=== PATIENT | male | born 1940 | race Caucasian/White ===

== ENCOUNTER 2016-04-13 16:06 | Inpatient (IN) | payer MEDICARE, MEDICAID ==
[2016-04-13 16:40] VITALS: BP 125/59
[2016-04-13 17:00] LABS: % BASOPHILS 1.4 % (0.0-2.0); % LYMPHOCYTES 12.1 % (20.0-50.0); % MONOCYTES 6.7 % (2.0-10.0); % NEUTROPHILS 76.8 % (40.0-80.0); HEMATOCRIT 33.4 % (39.0-49.0); MEAN CELL VOLUME 88.9 fl (80-99); MEAN CORPUSCULAR HEMOGLOBIN 29.4 pg (27.0-31.0); MEAN CORPUSCULAR HGB CONC 33.1 pg (28.0-36.0); MEAN PLATELET VOLUME 8.5 fl; NEUTROPHILE ABSOLUTE 4.7 Th/cmm (1.8-8.0); RED BLOOD COUNT 3.75 Mil/cmm (3.80-5.80); RED CELL DISTRIBUTION WIDTH 17.3 % (11.5-20.0)
[2016-04-13 17:01] LABS: WHITE BLOOD COUNT 6.2 Th/cmm (4.8-10.8)
[2016-04-13 17:02] LABS: PLATELET COUNT 149 Th/cmm (150-400)
[2016-04-13 17:10] LABS: ALB/GLOB RATIO 0.9 (1.0-1.8); ALKALINE PHOSPHATASE 211 U/L (34-104); ANION GAP 8.7 (7.0-16.0); BILIRUBIN,TOTAL 1.6 mg/dL (0.3-1.0); BUN - UREA NITROGEN 13 mg/dL (7-25); BUN/CREATININE RATIO 5.2; CALCIUM SERUM 9.4 mg/dL (8.6-10.3); CARBON DIOXIDE 33.8 mEq/L (21.0-31.0); CHLORIDE 104 mEq/L (98-107); CHOLESTEROL 89 mg/dL (<200); CREATININE - SERUM 2.5 mg/dL (0.7-1.3); GLUCOSE 239 mg/dL (70-105); POTASSIUM SERUM 3.5 mEq/L (3.5-5.1); SGOT 27 U/L (13-39); SGPT/ALT 15 U/L (7-52); TRIGLYCERIDES 82 mg/dL (<150)
[2016-04-13 17:26] LABS: SODIUM SERUM 143 mEq/L (136-145)
[2016-04-13 17:58] LABS: INR 1.25 (0.5-1.4); PROTHROMBIN TIME (TEST) 12.6 SECONDS (9.5-11.5)
--- NOTE | 2016-04-13 18:56 | ED Physician Chart ---
Chief Complaint/HPI - Patient Information Date Seen:: 04/13/16 Time Seen:: 18:31 Chief Complaint:: WEAKNESS History of Present Illness:: THIS IS A 75 YO OBESE MALE WITH SEVERE BOUTS OF WEAKNESS AND PALPATIONS WITH COUGHING. HE IS A DIALYSIS PATIENT AND HAD DIALYSIS TODAY. HE HAS HEART DISEASE WITH A FIB Allergies:: Allergies Allergy/AdvReac Type Severity Reaction Status Date / Time No Known Allergies Allergy Verified 12/28/15 21:02 Vitals:: Vital Signs - 8 hr 04/13/16 04/13/16 16:40 16:43 Temp 98.1 F HR 117 RR 18 BP 125/59 125/59 O2 Sat % 90 Historian:: Patient, Family Member Review:: Nurse's Note Reviewed Review of Systems - Review of Systems General/Constitutional: No fever, No chills, No weakness, No diaphoresis, Edema , No loss of appetite Skin: No skin lesions, No rash, No bruising Head: No headache, No light-headedness Eyes: No loss of vision, No pain, No diplopia ENT: No earache, No nasal drainage, No sore throat, No tinnitus Neck: No neck pain, No swelling, No thyromegaly, No stiffness, No mass noted Cardio Vascular: No chest pain, Palpitations, PND, orthopnea, edema Pulmonary: SOB, Cough, No sputum, No wheezing GI: Nausea, No vomiting, No diarrhea, No pain, No melena, No hematochezia, No constipation, No hematemesis G/U: No dysuria, No frequency, No hematuria Musculoskeletal: No bone or joint pain, No back pain, No muscle pain Endocrine: No polyuria, No polydipsia Psychiatric: No prior psych history, No depression, No anxiety, No suicidal ideation Hematopoietic: No bruising, No lymphadenopathy Allergic/Immuno: No urticaria, No angioedema Neurological: No syncope, No focal symptoms, No weakness, No paresthesia, No headache, No seizure, No dizziness, No confusion, No vertigo Past Medical History - Past Medical History Obtainable: Yes Past Medical History: HTN, DM, CAD, CHF, ESRD Family Medical History - Family Member Mother History Unknown: Yes Ethnicity: Hx Family Diabetes: Yes Physical Exam - Physical Examination General/Constitutional: Awake, Well-developed, well-nourished, Alert, No distress, GCS 15, Non-toxic appearing, Ambulatory Head: Atraumatic Eyes: Lids, conjuctiva normal, PERRL, EOMI Skin: Nl inspection, No rash, No skin lesions, No ecchymosis, Well hydrated, No lymphadenopathy ENMT: External ears, nose nl, Nasal exam nl, Lips, teeth, gums nl Neck: Nontender, Full ROM w/o pain, No JVD, No nuchal rigidity, No bruit, No mass, No stridor Respiratory: Nl effort/Exclusion Other Respiratory comments:: BILATERAL RALES HEARD IN BOTH LOWER LOBES. Cardio Vascular: No murmur, gallop, rubs, NL S1 S2 Other Cardio Vascular comments:: MULTIPLE PVCS AND ARE FREQUENT GI: No tenderness/rebounding/guarding, No organomegaly, No hernia, Normal BS's, Nondistended, No mass/bruits, No McBurney tenderness : No CVA tenderness Extremities: No tenderness or effusion, Full ROM, normal strength in all extremities, Normal digits & nails Other Extremities comments:: BILATERAL EDEMA OF THE LOWER LEGS Neuro/Psych: Alert/oriented, DTR's symmetric, Normal sensory exam, Normal motor strength, Judgement/insight normal, Mood normal, Normal gait, No focal deficits Misc: normal gait, Normal back, No paraspinal tenderness Labs/Radiology/EKG Results - Lab Results Results: Laboratory Tests 04/13/16 04/13/16 04/13/16 16:49 16:49 16:49 WBC 6.2 D RBC 3.75 L Hgb 11.0 L Hct 33.4 L MCV 88.9 MCH 29.4 MCHC Differential 33.1 RDW 17.3 Plt Count 149 L D MPV 8.5 Neutrophils % 76.8 Lymphocytes % 12.1 L Monocytes % 6.7 Eosinophils % 3.0 Basophils % 1.4 PT 12.6 H INR 1.25 PTT (Actin FS) 25.9 L Sodium Potassium Chloride Carbon Dioxide Anion Gap BUN Creatinine Est GFR ( Amer) Est GFR (Non-Af Amer) BUN/Creatinine Ratio Glucose Hemoglobin A1c % Calcium Total Bilirubin AST ALT Alkaline Phosphatase Troponin I Total Protein Albumin Globulin Albumin/Globulin Ratio Triglycerides 82 Cholesterol 89 LDL Cholesterol Direct 26 L HDL Cholesterol 41 TSH 04/13/16 04/13/16 04/13/16 16:49 16:49 16:49 WBC RBC Hgb Hct MCV MCH MCHC Differential RDW Plt Count MPV Neutrophils % Lymphocytes % Monocytes % Eosinophils % Basophils % PT INR PTT (Actin FS) Sodium 143 D Potassium 3.5 Chloride 104 Carbon Dioxide 33.8 H Anion Gap 8.7 BUN 13 Creatinine 2.5 H Est GFR ( Amer) TNP Est GFR (Non-Af Amer) TNP BUN/Creatinine Ratio 5.2 Glucose 239 H Hemoglobin A1c % Calcium 9.4 Total Bilirubin 1.6 H AST 27 ALT 15 Alkaline Phosphatase 211 H Troponin I 0.04 Total Protein 7.9 Albumin 3.7 L Globulin 4.2 Albumin/Globulin Ratio 0.9 L Triglycerides Cholesterol LDL Cholesterol Direct HDL Cholesterol TSH 3.26 04/13/16 16:49 WBC RBC Hgb Hct MCV MCH MCHC Differential RDW Plt Count MPV Neutrophils % Lymphocytes % Monocytes % Eosinophils % Basophils % PT INR PTT (Actin FS) Sodium Potassium Chloride Carbon Dioxide Anion Gap BUN Creatinine Est GFR ( Amer) Est GFR (Non-Af Amer) BUN/Creatinine Ratio Glucose Hemoglobin A1c % 8.8 H Calcium Total Bilirubin AST ALT Alkaline Phosphatase Troponin I Total Protein Albumin Globulin Albumin/Globulin Ratio Triglycerides Cholesterol LDL Cholesterol Direct HDL Cholesterol TSH - Radiology Results Results: CHEST X-RAY = 4+ CARDIOMEGALY - EKG Interpretations EKG Time:: 18:14 Rhythm: ATRIAL FIBRILLATION Page: LEFT Rate: 119 ED Septic Shock - . Is Septic Shock (SBP<90, OR Lactate>4 mmol\L) present?: No - <6hrs of presentation: Vital Signs: Vital Signs - 8 hr 04/13/16 04/13/16 16:40 16:43 Temp 98.1 F HR 117 RR 18 BP 125/59 125/59 O2 Sat % 90 Reassessment (Disposition) - Reassessment Reassessment Condition:: Improved - Diagnosis Diagnosis:: ACUTE CHF ESRD ATRIAL FIB MULTIFOCAL PVCS. - Patient Disposition Discharge/Transfer:: Acute Care w/in this hosp Condition at Disposition:: Unchanged ED Discharge Plan - Patient Disposition Admit/Discharge/Transfer: Acute Care w/in this hosp Condition at Disposition: Guarded
--- NOTE | 2016-04-13 21:55 | Admit Criteria Form ---
Admit Criteria Forms - Admit Criteria Diagnosis: RENAL FAILURE, CHRONIC Clinical Indications for Admission to Inpatient Care (Place 'X' for any and all applicable criteria): Admission is indicated for ANY ONE of the following (1)(2)(3)(4)(5): [ ]I. Inpatient admission required rather than observation care (Use Renal Failure, Chronic: Observation Care Criteria as appropriate) because of ANY ONE of the following: [ ]a) Volume overload or uremic symptoms (eg, clinically significant pulmonary edema, hypertension, pericarditis, acidosis) too severe for, or not responsive (eg, for over 24 hours) to emergency department or observation care dialysis or treatment regimen (11) [ ]b) Hemodynamic instability that is severe or persistent [ ]c) Respiratory distress that is severe or persistent (11) [ ]d) Clinically significant electrolyte abnormality that requires inpatient care (eg,hyperkalemia with severe ECG findings)[B] [ ]e) Supplement O2 or respiratory therapy for over 24hrs that is performable only in acute inpatient setting [ ]f) Continuous IV infusion of anticoagulation, platelet inhibitor, vasoactive, or Antiarrhythmic medication (15), [ ]g) Pulmonary artery catheter monitoring [ ]h) Temporary pacemaker placement [ ]i) Emergent pericardiocentesis [ ]j) Other condition, treatment or monitoring requiring inpatient admission [ ]II. Unexplained syncope [A] [ ]III. Recurrent seizures [ ]IV. Severe infections not treatable in outpatient setting (eg, peritonitis)(9 ) [X]V. Cardiac arrhythmias of immediate concern [ ]. Encephalopathy [ ]VII.Bleeding abnormalities (eg, platelet dysfunction) with active (eg, gastrointestinal) bleeding Extended stay beyond goal length of stay may be needed for (3)(4)(35)(36): [ ]a) Continuing uremic complications [ ]b) Comorbidities or complications The original [employer] content created by [employer] has been revised. The portions of the content which have been revised are identified through the use of italic text or in bold, and [facility] [employer] has neither reviewed nor approved the modified material. All other unmodified content is copyright [employer]. Please see references footnoted in the original [email or web address] edition 2016 Admit Criteria Met?: Yes
[2016-04-13] MEDS: INSULIN ASPART SLIDING SCALE 100 UNITS/ML UNIT SUBQ SCH (23:00)
[2016-04-14] MEDS: INSULIN ASPART SLIDING SCALE 100 UNITS/ML UNIT SUBQ SCH ×4 (06:50→21:05)
[2016-04-14 07:14] LABS: % BASOPHILS 0.2 % (0.0-2.0); % EOSINOPHILS 2.7 % (0.0-5.0); % LYMPHOCYTES 9.2 % (20.0-50.0); % MONOCYTES 7.9 % (2.0-10.0); HEMATOCRIT 30.1 % (39.0-49.0); MEAN CELL VOLUME 88.9 fl (80-99); MEAN CORPUSCULAR HEMOGLOBIN 29.6 pg (27.0-31.0); MEAN CORPUSCULAR HGB CONC 33.3 pg (28.0-36.0); MEAN PLATELET VOLUME 8.7 fl; NEUTROPHILE ABSOLUTE 5.6 Th/cmm (1.8-8.0); PLATELET COUNT 129 Th/cmm (150-400); RED BLOOD COUNT 3.39 Mil/cmm (3.80-5.80); RED CELL DISTRIBUTION WIDTH 17.9 % (11.5-20.0)
[2016-04-14 07:51] LABS: ALB/GLOB RATIO 0.9 (1.0-1.8); ALKALINE PHOSPHATASE 188 U/L (34-104); ANION GAP 10.5 (7.0-16.0); BILIRUBIN,TOTAL 1.4 mg/dL (0.3-1.0); BUN - UREA NITROGEN 18 mg/dL (7-25); BUN/CREATININE RATIO 5.6; CALCIUM SERUM 8.9 mg/dL (8.6-10.3); CHLORIDE 103 mEq/L (98-107); CREATININE - SERUM 3.2 mg/dL (0.7-1.3); GLUCOSE 150 mg/dL (70-105); POTASSIUM SERUM 3.5 mEq/L (3.5-5.1); SGOT 26 U/L (13-39); SGPT/ALT 15 U/L (7-52); SODIUM SERUM 145 mEq/L (136-145)
--- NOTE | 2016-04-14 08:43 | General Progress Note ---
Subjective - Review of Systems Service Date: 04/14/16 Subjective: I could not sleep. Objective - Results Result Diagrams: 04/14/16 06:06 04/14/16 06:06 Recent Labs: Laboratory Last Values WBC 7.0 Th/cmm (4.8-10.8) 04/14/16 06:06 RBC 3.39 Mil/cmm (3.80-5.80) L 04/14/16 06:06 Hgb 10.0 gm/dL (12.6-17.4) L 04/14/16 06:06 Hct 30.1 % (39.0-49.0) L 04/14/16 06:06 MCV 88.9 fl (80-99) 04/14/16 06:06 MCH 29.6 pg (27.0-31.0) 04/14/16 06:06 MCHC Differential 33.3 pg (28.0-36.0) 04/14/16 06:06 RDW 17.9 % (11.5-20.0) 04/14/16 06:06 Plt Count 129 Th/cmm (150-400) L 04/14/16 06:06 MPV 8.7 fl 04/14/16 06:06 Neutrophils % 80.0 % (40.0-80.0) 04/14/16 06:06 Lymphocytes % 9.2 % (20.0-50.0) L 04/14/16 06:06 Monocytes % 7.9 % (2.0-10.0) 04/14/16 06:06 Eosinophils % 2.7 % (0.0-5.0) 04/14/16 06:06 Basophils % 0.2 % (0.0-2.0) 04/14/16 06:06 PT 12.6 SECONDS (9.5-11.5) H 04/13/16 16:49 INR 1.25 (0.5-1.4) 04/13/16 16:49 PTT (Actin FS) 25.9 SECONDS (26.0-38.0) L 04/13/16 16:49 Sodium 145 mEq/L (136-145) 04/14/16 06:06 Potassium 3.5 mEq/L (3.5-5.1) 04/14/16 06:06 Chloride 103 mEq/L (98-107) 04/14/16 06:06 Carbon Dioxide 35.0 mEq/L (21.0-31.0) H 04/14/16 06:06 Anion Gap 10.5 (7.0-16.0) 04/14/16 06:06 BUN 18 mg/dL (7-25) 04/14/16 06:06 Creatinine 3.2 mg/dL (0.7-1.3) H 04/14/16 06:06 Est GFR ( Amer) TNP 04/14/16 06:06 Est GFR (Non-Af Amer) TNP 04/14/16 06:06 BUN/Creatinine Ratio 5.6 04/14/16 06:06 Glucose 150 mg/dL (70-105) H 04/14/16 06:06 POC Glucose 172 MG/DL (70 - 105) H 04/14/16 06:46 Hemoglobin A1c % 8.8 % (4.0-6.0) H 04/13/16 16:49 Calcium 8.9 mg/dL (8.6-10.3) 04/14/16 06:06 Total Bilirubin 1.4 mg/dL (0.3-1.0) H 04/14/16 06:06 AST 26 U/L (13-39) 04/14/16 06:06 ALT 15 U/L (7-52) 04/14/16 06:06 Alkaline Phosphatase 188 U/L (34-104) H 04/14/16 06:06 Troponin I 0.04 ng/mL (0.01-0.05) 04/13/16 16:49 Total Protein 7.1 gm/dL (6.0-8.3) 04/14/16 06:06 Albumin 3.4 gm/dL (4.2-5.5) L 04/14/16 06:06 Globulin 3.7 gm/dL 04/14/16 06:06 Albumin/Globulin Ratio 0.9 (1.0-1.8) L 04/14/16 06:06 Triglycerides 82 mg/dL (<150) 04/13/16 16:49 Cholesterol 89 mg/dL (<200) 04/13/16 16:49 LDL Cholesterol Direct 26 mg/dL (75-193) L 04/13/16 16:49 HDL Cholesterol 41 mg/dL (23-92) 04/13/16 16:49 TSH 3.26 uIU/ml (0.34-5.60) 04/13/16 16:49 RPR NONREACTIVE (NONREACTIVE) 04/13/16 16:49 - Physical Exam Vitals and I&O: Vital Signs Temp 98 F 04/14/16 04:00 Pulse 100 04/14/16 04:00 Resp 19 04/14/16 04:00 BP 152/80 04/14/16 08:13 Pulse Ox 96 04/14/16 04:00 Active Medications: Current Medications Acetaminophen (Tylenol) 650 mg PO BID [facility] Stop: 06/13/16 08:59 Last Admin: 04/14/16 08:13 Dose: 650 mg Docusate Sodium (Colace) 100 mg PO BID [facility] Stop: 06/13/16 08:59 Last Admin: 04/14/16 08:12 Dose: 100 mg Folic Acid (Folate) 1 mg PO DAILY [facility] Stop: 06/13/16 08:59 Last Admin: 04/14/16 08:13 Dose: 1 mg Furosemide (Lasix) 40 mg PO DAILY [facility] Stop: 06/13/16 08:59 Last Admin: 04/14/16 08:13 Dose: 40 mg Insulin Aspart (Novolog Insulin Sliding Scale) 0 units SUBQ ACHS [facility] PRN Reason: Protocol Stop: 06/12/16 21:59 Last Admin: 04/14/16 06:50 Dose: 3 units Nortriptyline HCl (Pamelor) 10 mg PO HS [facility] Stop: 06/13/16 20:59 Pneumococcal Polyvalent Vaccine (Pneumovax) 0.5 ml IM .ONCE ONE Stop: 04/14/16 13:01 Simvastatin (Zocor) 40 mg PO [facility] Stop: 06/13/16 20:59 Tamsulosin HCl (Flomax) 0.4 mg PO DAILY [facility] Stop: 06/13/16 08:59 Last Admin: 04/14/16 08:13 Dose: 0.4 mg General: Alert, Oriented x3, Cooperative HEENT: Atraumatic Neck: Supple Cardiovascular: Regular rate Lungs: Other (Bilateral basal rales in both hemithorax) Abdomen: Bowel sounds Extremities: Other (Pitting edema 1+, Pulses weak.) Neurological: Other (unstable gait) Skin: Other (lower extremities is dark and dry.) Psych/Mental Status: Mental status NL - Procedures Procedures: Procedures Procedure Code Date PERFORMANCE OF URINARY FILTRATION, MULTIPLE [id number] 12/29/15 Assessment/Plan - Assessment Assessment: Patient is awake, calm. Dx: CHF, SVT, ESRD, PVD, Obesity - Plan Plan: Patient in home meds, lasix, awaitting eval from cardio and nephro.
[2016-04-14] MEDS ORDERED: Atorvastatin Calcium 10 MG TAB PO SCH (09:00)
--- NOTE | 2016-04-14 09:41 | Diagnostic Imaging Report ---
Portable chest x-ray HISTORY: Shortness of breath There is marked cardiomegaly. There is evidence of a small right pleural effusion. Pulmonary vascular redistribution is noted. IMPRESSION: 1. Marked cardiomegaly with a small pleural effusion findings suggesting a degree of congestive heart failure. Clinical correlation is needed.
--- NOTE | 2016-04-14 11:08 | History & Physical ---
CHIEF COMPLAINT: Weakness, palpitations, and coughing. HISTORY OF PRESENT ILLNESS: This is the case of a 75-year-old male who I follow in my office. The patient called that he fell down in the morning and he has shortness of breath, reason why patient was sent to Emergency Room for evaluation and treatment. On evaluation in ER, it was found the patient had SVTs with some shortness of breath, reason why patient was hospitalized for treatment. PAST MEDICAL HISTORY: The patient has past medical history of hypertension, diabetes mellitus, cardiac artery disease, end-stage renal disease, on hemodialysis 4 times a week and obesity and peripheral vascular disease. FAMILY HISTORY: Unremarkable. ALLERGIES: No known allergies. SOCIAL HISTORY: The patient lives at home with sons. The patient denies use of alcohol or drugs. REVIEW OF SYSTEMS: LUNGS: The patient referred some shortness of breath. HEART: The patient referred palpitation. ABDOMEN: Unremarkable. EXTREMITIES: Muscle weakness in lower extremities. NEUROLOGICAL: The patient referred that he fell down in the morning. PHYSICAL EXAMINATION: GENERAL: Does reveal a fairly nourished and developed and obese male, awake, alert with some distress secondary to shortness of breath. HEENT: Head is normocephalic and atraumatic. Eyes: Pupils reactive to light. Fundus not examined at this time. Nose: No evidence of nasal obstruction. Ears: No evidence of any discharge. Mouth: Fairly ____. LUNGS: Bilateral rales in both lower lobes. HEART: Regular rhythm. ABDOMEN: Soft, nontender, bowel sound is present. EXTREMITIES: Full movement of all extremities with weakness in lower extremities. SKIN: Skin of lower extremities is dark and dry. Lower extremity pulses weak. NEUROLOGICAL: The patient is awake, alert and oriented. Nerves 2-12 grossly intact. DIAGNOSES: 1. Acute congestive heart failure. 2. Atrial fibrillation. 3. End-stage renal disease. 4. Multifocal premature ventricular contractions. PLAN: 1. The patient will be admitted in the telemetry unit. 2. Saline lock. 3. Consult with Dr. Immanuel Irving, Cardiology. 4. Consult with Dr. Amin, Nephrology. 5. Continue with home medications. 6. Renal diet. JOB# [id number]
[2016-04-14] MEDS ORDERED: Pneumococcal Vaccine 0.5 mL Vial IM ONE (13:00)
--- NOTE | 2016-04-15 00:52 | Admit Criteria Form ---
Admit Criteria Forms - Admit Criteria Diagnosis: ATRIAL FIBRILLATION Clinical Indications for Admission to Inpatient Care (Place 'X' for any and all applicable criteria): Admission indicated for ANY ONE of the following(1)(2)(3)(4)(5) : [ ]I. Myocardial ischemia [ ]II. Dyspnea or hypoxemia [ ]III. Hemodynamic instability [X]IV. Heart failure (e.g., pulmonary edema) (7) [ ]V. New-onset (less than 48 hours) atrial fibrillation with high risk for causing complications secondary to comorbidities (eg, symptomatic heart failure) [ ]. Altered mental status [ ]VII. Syncope [ ]VIII. Patient has implantable cardioverter defibrillator that has fired more than once within past 24hr or needs immediate adjustment of settings that cannot be done other than in inpatient setting. (8) [ ]IX. Suspected accessory pathway (e.g., Vruws-Hnmbpfgki-Najzl syndrome) on ECG [ ]X. Recent systemic thromboembolism (eg, stroke) [ ]XI. Medication toxicity (e.g., digitalis) causing arrhythmia(9) [ ]XII. Underlying medical condition that necessitates inpatient care (e.g., thyrotoxicosis, pneumonia) (10) [ ]XIII. Continuous ECG monitoring is required for condition causing arrhythmia (e.g., severe hyperkalemia, hypokalemia, acid-base disturbance).(11)(12)(13) [ ]XIV. Initiation of antiarrhythmic drug therapy is needed in patient at high risk of adverse effects as indicated by ANY ONE of the following: [ ]a) Significant structural heart disease (e.g., reduced ejection fraction, congenital heart disease, valvular heart disease) [ ]b) Prolonged QT interval [ ]c) Underlying sinus node or atrioventricular conduction disturbances [ ]d) Need for treatment with antiarrhythmic drugs that have significant proarrhythmic potential (e.g., dofetilide, sotalol, procainamide) [ ]e) Patient whose sinus rhythm has never been observed on ECG [ ]XV. Intolerable symptoms despite optimal outpatient treatment [ ]XVI. Elective or urgent cardioversion that cannot be performed on outpatient basis or during observation care. [A] (Use also Atrial Fibrillation: Observation Care ) as appropriate.(14) [ ]XVII.Contraindications and/or Inappropriate clinical situations for Observational Care in patients with Atrial Fibrillation, when ANY ONE of the following is required: [ ]a) Patient with High risk of cardiac embolism (e.g, patients with previous cardiac embolism, LVEF < 40%, age >75 and patients with prosthetic valve) 18 [ ]b) Patient with Moderate risk including DM patient, CAD and patient aged 65-75 18 [ ]c) Patient with any change in cardiac biomarker especially troponin should be managed as high risk in an inpatient setting 19 [ ]d) Physician judgement irrespective of ECG and other diagnostic findings 20 [ ]XVIII.General contraindications and/or Inappropriate clinical situations for Observational Care in patients with Atrial Fibrillation, when ANY ONE of the following is required: [ ]a) Prediction of prolongation of LOS based on ANY ONE of the following may be considered as a contraindication for observational care 2, 3, 4, 5, 6, 7, 8, 9, 10, 11 [ ]i) Age > 65 yrs. [ ]ii) Patient arriving by ambulance [ ]iii) Patient with high acuity [ ]iv) Patient requiring vital sign monitoring [ ]v) Patient on IV medication [ ]b) Systolic blood pressures 180mmHg 3,12 [ ]c) Patient with altered mental status including delirium and other alteration of consciousness3 [ ]d) Patient whose discharge disposition will be to a correction home or rehabilitation home should not be managed in Emergency Department Observation Unit. CMS rule requires 3 days hospital stay before such placement.3,13 [ ]e) Patient with failure to thrive due to broad array of etiologies 3,16,17 [ ]f) Inability to ambulate 3,14 Extended stay beyond goal length of stay may be needed for (1)(25)(26): [ ]a) Unstable comorbidities [ ]b) Persistently uncontrolled atrial fibrillation or other arrhythmias [ ]c) Acute thromboembolic event (e.g., stroke, limb ischemia) [ ]d) Need for inpatient attainment of full anticoagulation The original [employer] content created by [employer] has been revised. The portions of the content which have been revised are identified through the use of italic text or in bold, and [facility] has neither reviewed nor approved the modified material. All other unmodified content is copyright [facility]. Please see references footnoted in the original [email or web address] edition 2016 Admit Criteria Met?: Yes
[2016-04-15] MEDS: INSULIN ASPART SLIDING SCALE 100 UNITS/ML UNIT SUBQ SCH ×4 (06:40→23:55)
[2016-04-15 07:27] LABS: % BASOPHILS 0.9 % (0.0-2.0); % EOSINOPHILS 5.1 % (0.0-5.0); % LYMPHOCYTES 12.4 % (20.0-50.0); % MONOCYTES 7.8 % (2.0-10.0); % NEUTROPHILS 73.8 % (40.0-80.0); HEMATOCRIT 31.4 % (39.0-49.0); HEMOGLOBIN 10.4 gm/dL (12.6-17.4); MEAN CELL VOLUME 89.1 fl (80-99); MEAN CORPUSCULAR HEMOGLOBIN 29.5 pg (27.0-31.0); MEAN CORPUSCULAR HGB CONC 33.1 pg (28.0-36.0); MEAN PLATELET VOLUME 8.6 fl; NEUTROPHILE ABSOLUTE 5.6 Th/cmm (1.8-8.0); PLATELET COUNT 135 Th/cmm (150-400); RED BLOOD COUNT 3.52 Mil/cmm (3.80-5.80); WHITE BLOOD COUNT 7.6 Th/cmm (4.8-10.8)
[2016-04-15 07:54] LABS: ALB/GLOB RATIO 0.9 (1.0-1.8); ALKALINE PHOSPHATASE 194 U/L (34-104); ANION GAP 11.3 (7.0-16.0); BILIRUBIN,TOTAL 1.5 mg/dL (0.3-1.0); BUN - UREA NITROGEN 29 mg/dL (7-25); BUN/CREATININE RATIO 6.6; CALCIUM SERUM 8.9 mg/dL (8.6-10.3); CARBON DIOXIDE 31.2 mEq/L (21.0-31.0); CHLORIDE 99 mEq/L (98-107); GLUCOSE 147 mg/dL (70-105); POTASSIUM SERUM 4.5 mEq/L (3.5-5.1); SGOT 24 U/L (13-39); SGPT/ALT 16 U/L (7-52); SODIUM SERUM 137 mEq/L (136-145)
[2016-04-15 07:58] LABS: CREATININE - SERUM 4.4 mg/dL (0.7-1.3)
--- NOTE | 2016-04-15 09:32 | General Progress Note ---
Subjective - Review of Systems Service Date: 04/15/16 Subjective: I have cough Objective - Results Result Diagrams: 04/15/16 07:06 04/15/16 07:06 Recent Labs: Laboratory Last Values WBC 7.6 Th/cmm (4.8-10.8) 04/15/16 07:06 RBC 3.52 Mil/cmm (3.80-5.80) L 04/15/16 07:06 Hgb 10.4 gm/dL (12.6-17.4) L 04/15/16 07:06 Hct 31.4 % (39.0-49.0) L 04/15/16 07:06 MCV 89.1 fl (80-99) 04/15/16 07:06 MCH 29.5 pg (27.0-31.0) 04/15/16 07:06 MCHC Differential 33.1 pg (28.0-36.0) 04/15/16 07:06 RDW 17.0 % (11.5-20.0) 04/15/16 07:06 Plt Count 135 Th/cmm (150-400) L 04/15/16 07:06 MPV 8.6 fl 04/15/16 07:06 Neutrophils % 73.8 % (40.0-80.0) 04/15/16 07:06 Lymphocytes % 12.4 % (20.0-50.0) L 04/15/16 07:06 Monocytes % 7.8 % (2.0-10.0) 04/15/16 07:06 Eosinophils % 5.1 % (0.0-5.0) H 04/15/16 07:06 Basophils % 0.9 % (0.0-2.0) 04/15/16 07:06 PT 12.6 SECONDS (9.5-11.5) H 04/13/16 16:49 INR 1.25 (0.5-1.4) 04/13/16 16:49 PTT (Actin FS) 25.9 SECONDS (26.0-38.0) L 04/13/16 16:49 Sodium 137 mEq/L (136-145) 04/15/16 07:06 Potassium 4.5 mEq/L (3.5-5.1) 04/15/16 07:06 Chloride 99 mEq/L (98-107) 04/15/16 07:06 Carbon Dioxide 31.2 mEq/L (21.0-31.0) H 04/15/16 07:06 Anion Gap 11.3 (7.0-16.0) 04/15/16 07:06 BUN 29 mg/dL (7-25) H 04/15/16 07:06 Creatinine 4.4 mg/dL (0.7-1.3) H* 04/15/16 07:06 Est GFR ( Amer) TNP 04/15/16 07:06 Est GFR (Non-Af Amer) TNP 04/15/16 07:06 BUN/Creatinine Ratio 6.6 04/15/16 07:06 Glucose 147 mg/dL (70-105) H 04/15/16 07:06 POC Glucose 130 MG/DL (70 - 105) H 04/15/16 06:38 Hemoglobin A1c % 8.8 % (4.0-6.0) H 04/13/16 16:49 Calcium 8.9 mg/dL (8.6-10.3) 04/15/16 07:06 Total Bilirubin 1.5 mg/dL (0.3-1.0) H 04/15/16 07:06 AST 24 U/L (13-39) 04/15/16 07:06 ALT 16 U/L (7-52) 04/15/16 07:06 Alkaline Phosphatase 194 U/L (34-104) H 04/15/16 07:06 Troponin I 0.04 ng/mL (0.01-0.05) 04/13/16 16:49 Total Protein 7.3 gm/dL (6.0-8.3) 04/15/16 07:06 Albumin 3.5 gm/dL (4.2-5.5) L 04/15/16 07:06 Globulin 3.8 gm/dL 04/15/16 07:06 Albumin/Globulin Ratio 0.9 (1.0-1.8) L 04/15/16 07:06 Triglycerides 82 mg/dL (<150) 04/13/16 16:49 Cholesterol 89 mg/dL (<200) 04/13/16 16:49 LDL Cholesterol Direct 26 mg/dL (75-193) L 04/13/16 16:49 HDL Cholesterol 41 mg/dL (23-92) 04/13/16 16:49 TSH 3.26 uIU/ml (0.34-5.60) 04/13/16 16:49 RPR NONREACTIVE (NONREACTIVE) 04/13/16 16:49 - Physical Exam Vitals and I&O: Vital Signs Temp 97.9 F 04/15/16 04:00 Pulse 94 04/15/16 04:00 Resp 20 04/15/16 04:00 BP 155/75 04/15/16 04:00 Pulse Ox 94 04/15/16 04:00 Intake & Output 04/14/16 04/15/16 04/15/16 18:59 06:59 18:59 Intake Total 450 500 Balance 450 500 Intake: Oral 450 500 Other: # Voids 2 Active Medications: Current Medications Acetaminophen (Tylenol) 650 mg PO BID [facility] Stop: 06/13/16 08:59 Last Admin: 04/15/16 08:22 Dose: 650 mg Docusate Sodium (Colace) 100 mg PO BID [facility] Stop: 06/13/16 08:59 Last Admin: 04/15/16 08:22 Dose: 100 mg Folic Acid (Folate) 1 mg PO DAILY [facility] Stop: 06/13/16 08:59 Last Admin: 04/15/16 08:22 Dose: 1 mg Furosemide (Lasix) 40 mg PO DAILY [facility] Stop: 06/13/16 08:59 Last Admin: 04/14/16 08:13 Dose: 40 mg Insulin Aspart (Novolog Insulin Sliding Scale) 0 units SUBQ ACHS [facility] PRN Reason: Protocol Stop: 06/12/16 21:59 Last Admin: 04/15/16 06:40 Dose: Not Given Nortriptyline HCl (Pamelor) 10 mg PO HS [facility] Stop: 06/13/16 20:59 Simvastatin (Zocor) 40 mg PO HS [facility] Stop: 06/13/16 20:59 Last Admin: 04/14/16 20:57 Dose: 40 mg Tamsulosin HCl (Flomax) 0.4 mg PO DAILY [facility] Stop: 06/13/16 08:59 Last Admin: 04/15/16 08:22 Dose: 0.4 mg General: Alert, Oriented x3, Cooperative, No acute distress HEENT: Atraumatic Neck: Supple Cardiovascular: Regular rate Lungs: Clear to auscultation, no Other Abdomen: Bowel sounds, Soft Extremities: Other (Pitting edema 1+) Neurological: Other (Unstable gait) Skin: Other (Lower extremities sking is dark.) Psych/Mental Status: Mental status NL - Procedures Procedures: Procedures Procedure Code Date PERFORMANCE OF URINARY FILTRATION, MULTIPLE [id number] 12/29/15 Assessment/Plan - Assessment Assessment: Patient is awake, calm. Dx: CHF, SVT, ESRD, PVD, Obesity - Plan Plan: Patient in home meds, lasix, awaitting eval from cardio and nephro.
[2016-04-15] MEDS ORDERED: Heparin Sodium 1,000 Units/mL Vial IVP ONE (22:00)
[2016-04-15] MEDS ORDERED: Heparin 25,000 Units In D5W 25,000 UNITS/250 ML BAG IV PRN (22:27)
--- NOTE | 2016-04-15 23:24 | Consultation ---
HISTORY OF PRESENT ILLNESS: This 75-year-old male was seen and examined the courtesy of Dr. Celaya. The patient was admitted here with some shortness of breath, swelling of the legs, not feeling good. Apparently, patient does have a history of coronary artery disease, hypertension, atrial fibrillation, diabetes type 2, end-stage renal disease, on hemodialysis, anemia of chronic disease. He was also found to have ulcers on the right foot discoloration of both lower extremities and anemia of chronic disease. On questioning him, he does not give any history of chest pain at the moment some shortness of breath, no dizziness. No syncope, no seizures. No hemoptysis. No history of abdominal pain, no nausea, vomiting, no history of hemetemesis, no history of melena, no history of bleeding per rectum. No history of change in bowel habits. ____ history of dementia. In the ER, the patient was a very poor historian. PAST MEDICAL HISTORY: The patient is not giving up any proper past history, family history or social history. PHYSICAL EXAMINATION: VITAL SIGNS: Heart rate 111, atrial fibrillation. Blood pressure was 130/81, temperature 98.2, respirations 20, O2 saturation 92%. The patient is getting hemodialysis right now. SKIN: Unremarkable. NECK: There was no increased jugular venous distention, no thyromegaly, no lymphadenopathy. Carotids equal on both sides. CHEST: Bilaterally symmetrical and moves well with respirations. Respiratory movement equal both sides. Trachea is central. There is note to percussion. Breath sound bilateral rales. CARDIOVASCULAR: PMI not well localized and no positional thrills. No parasternal heave. S1 is varying intensity. S2 is physiologic. There is no definite S3, no rub. ABDOMEN: Soft, no tenderness, no rigidity, no guarding and no organomegaly. Bowel sounds normal. EXTREMITIES: There is bilateral edema. ____ both lower extremities. There is ulcer on the right foot on the fourth toe as well as on the big toe plantar aspect. LABORATORY DATA: EKG showed atrial fibrillation, slightly fast ventricular response, heart rate was 119 at that time, generalized low voltage. Rare PVCs. WBC count was 7.6, hemoglobin 10.4, hematocrit 31.4, platelet count was 135. Sodium 137, potassium 4.5, chloride 99, CO2 is 31.2, BUN 79, creatinine 4.4, glucose 147, alkaline phosphatase 194, cholesterol 89, triglycerides 82, HDL 41, LDL 26. TSH 3.26. Troponin level was 0.04. Hemoglobin A1c 8.8. Protime INR was 1.25, PTT 25.9. IMPRESSION: History of coronary artery disease, atrial fibrillation, hypertension, congestive heart failure, chest x-ray showing pulmonary vascular congestion, cardiomegaly, right pleural effusion, diabetes type 2, diabetic involvement of the kidneys, end-stage renal disease on hemodialysis, morbid obesity, anemia of chronic disease, ulcers on the right foot, diabetic foot benign prostatic hypertrophy. DISCUSSED CESSATION: This 75-year-old man who was admitted here who is a very poor historian, seems to have multiple problems. Since he has AFib, I do not know if it is acute or chronic, probably it is chronic. He should be considering his different problems. He should be on anticoagulation unless until contraindicated. We will take the liberty of starting him on heparin IV drip and later on Coumadin can be added. We will also add Pepcid 20 mg p.o. daily. We will add Coreg 3.125 p.o. b.i.d., Altace 2.5 mg p.o. daily. We will get BNP, echocardiogram to evaluate left ventricular function and valvular structure and also get arterial Doppler studies of lower extremities to evaluate for peripheral circulation. Thank you Dr. Juno Irving will be following the patient from the morning. JOB# [id number]
--- NOTE | 2016-04-16 06:05 | Consultation ---
REFERRING PHYSICIAN: Dr. Hien Celaya. CONSULTING PHYSICIAN: Dr. Saviat Brown. TYPE OF CONSULTATION: Nephrology. REASON FOR CONSULTATION: Dialysis status. 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 The patient on arrival to the Emergency Room had a chest x-ray that showed marked cardiomegaly with small pleural effusions suggesting a degree of congestive heart failure. He was admitted for further evaluation. His last hemodialysis was on Saturday ____ dialysis unit without incident. PAST MEDICAL HISTORY: 1. End-stage renal disease secondary to diabetic glomerulosclerosis and hypertensive nephrosclerosis, on Saturday, Saturday and Saturday. Hemodialysis through the Dialysis Unit. 2. Morbid obesity. 3. Type 2 diabetes mellitus with renal and peripheral vascular disease and hyperlipidemia manifestations. 4. Coronary artery disease. 5. Hypertension with anemia of chronic kidney disease. 6. Atrial fibrillation. PAST SURGICAL HISTORY: 1. Left upper extremity AV fistula creation. 2. Prior procedures for peripheral arterial disease. SOCIAL HISTORY: Denies use of tobacco, alcohol or illicit drug use. ALLERGIES: No known allergies. CURRENT MEDICATIONS: Include acetaminophen, Colace, folic acid, Lasix, insulin sliding scale, Pamelor, Phenergan, Zocor and Flomax. REVIEW OF SYSTEMS: CONSTITUTIONAL: Weakness. No fever or chills. CARDIOVASCULAR: Denies any current chest pain or palpitations. PULMONARY: Denies shortness of breath, but does have cough. MUSCULOSKELETAL: Weakness. PHYSICAL EXAMINATION: VITAL SIGNS: Temperature 98.5, heart rate 110, blood pressure 134/91 and oxygen saturation 96% on room air. GENERAL: The patient is awake, alert, morbidly obese, in no apparent distress. CARDIOVASCULAR: Irregularly irregular. LUNGS: Decreased breath sounds at the bases. EXTREMITIES: Stasis changes and 2+ pitting edema. DIAGNOSTIC DATA: White blood cell count 7.6, hemoglobin 10.4 and platelet count 135. Sodium 137, potassium 4.5, chloride 99, BUN 29, creatinine 4.4 and albumin 3.5. ASSESSMENT AND RECOMMENDATIONS: The patient is a 75-year-old male with: 1. End-stage renal disease secondary to diabetic glomerulosclerosis and hypertensive nephrosclerosis, on Saturday, Saturday and Saturday hemodialysis through the dialysis unit with initial complaints that were construed to be possible congestive heart failure exacerbation, stable. The patient will be dialyzed today to optimize volume control. 2. Morbid obesity, stable. Continue low fat diet. 3. Type 2 diabetes mellitus with renal and peripheral vascular disease and hyperlipidemia manifestations, stable. Continue insulin support. 4. Hyperlipidemia as manifestation of diabetes, stable. Continue statin. 5. Hypertension, stable. Continue Lasix and titrate medication regimen as necessary. 6. Anemia of chronic kidney disease, stable. Initiate Epogen. 7. Atrial fibrillation, stable. Follow up Cardiology recommendations. Plan of care was discussed with the patient. Thank you, Dr. Celaya for allowing me to participate in the care of this patient. I will continue to follow with you. JOB# [id number]
[2016-04-16] MEDS: INSULIN ASPART SLIDING SCALE 100 UNITS/ML UNIT SUBQ SCH ×4 (06:50→20:53)
[2016-04-16 07:38] LABS: % EOSINOPHILS 2.7 % (0.0-5.0); % LYMPHOCYTES 12.9 % (20.0-50.0); % MONOCYTES 8.6 % (2.0-10.0); % NEUTROPHILS 74.8 % (40.0-80.0); HEMATOCRIT 31.4 % (39.0-49.0); HEMOGLOBIN 10.5 gm/dL (12.6-17.4); MEAN CELL VOLUME 88.2 fl (80-99); MEAN CORPUSCULAR HEMOGLOBIN 29.6 pg (27.0-31.0); MEAN CORPUSCULAR HGB CONC 33.6 pg (28.0-36.0); NEUTROPHILE ABSOLUTE 5.7 Th/cmm (1.8-8.0); PLATELET COUNT 142 Th/cmm (150-400); RED BLOOD COUNT 3.56 Mil/cmm (3.80-5.80); RED CELL DISTRIBUTION WIDTH 16.8 % (11.5-20.0); WHITE BLOOD COUNT 7.7 Th/cmm (4.8-10.8)
[2016-04-16 08:53] LABS: ALKALINE PHOSPHATASE 219 U/L (34-104); ANION GAP 7.5 (7.0-16.0); BILIRUBIN,TOTAL 1.5 mg/dL (0.3-1.0); BUN - UREA NITROGEN 27 mg/dL (7-25); BUN/CREATININE RATIO 6.8; CALCIUM SERUM 8.8 mg/dL (8.6-10.3); CARBON DIOXIDE 28.6 mEq/L (21.0-31.0); CHLORIDE 102 mEq/L (98-107); GLUCOSE 172 mg/dL (70-105); POTASSIUM SERUM 4.1 mEq/L (3.5-5.1); SGOT 24 U/L (13-39); SGPT/ALT 16 U/L (7-52); SODIUM SERUM 134 mEq/L (136-145)
--- NOTE | 2016-04-16 10:00 | General Progress Note ---
Subjective - Review of Systems Service Date: 04/16/16 Subjective: I am tired Objective - Results Result Diagrams: 04/16/16 06:40 04/16/16 08:15 Recent Labs: Laboratory Last Values WBC 7.7 Th/cmm (4.8-10.8) 04/16/16 06:40 RBC 3.56 Mil/cmm (3.80-5.80) L 04/16/16 06:40 Hgb 10.5 gm/dL (12.6-17.4) L 04/16/16 06:40 Hct 31.4 % (39.0-49.0) L 04/16/16 06:40 MCV 88.2 fl (80-99) 04/16/16 06:40 MCH 29.6 pg (27.0-31.0) 04/16/16 06:40 MCHC Differential 33.6 pg (28.0-36.0) 04/16/16 06:40 RDW 16.8 % (11.5-20.0) 04/16/16 06:40 Plt Count 142 Th/cmm (150-400) L 04/16/16 06:40 MPV 9.0 fl 04/16/16 06:40 Neutrophils % 74.8 % (40.0-80.0) 04/16/16 06:40 Lymphocytes % 12.9 % (20.0-50.0) L 04/16/16 06:40 Monocytes % 8.6 % (2.0-10.0) 04/16/16 06:40 Eosinophils % 2.7 % (0.0-5.0) 04/16/16 06:40 Basophils % 1.0 % (0.0-2.0) 04/16/16 06:40 PT 12.6 SECONDS (9.5-11.5) H 04/13/16 16:49 INR 1.25 (0.5-1.4) 04/13/16 16:49 PTT (Actin FS) 25.9 SECONDS (26.0-38.0) L 04/13/16 16:49 Sodium 134 mEq/L (136-145) L 04/16/16 08:15 Potassium 4.1 mEq/L (3.5-5.1) 04/16/16 08:15 Chloride 102 mEq/L (98-107) 04/16/16 08:15 Carbon Dioxide 28.6 mEq/L (21.0-31.0) 04/16/16 08:15 Anion Gap 7.5 (7.0-16.0) 04/16/16 08:15 BUN 27 mg/dL (7-25) H 04/16/16 08:15 Creatinine 4.0 mg/dL (0.7-1.3) H 04/16/16 08:15 Est GFR ( Amer) TNP 04/16/16 08:15 Est GFR (Non-Af Amer) TNP 04/16/16 08:15 BUN/Creatinine Ratio 6.8 04/16/16 08:15 Glucose 172 mg/dL (70-105) H 04/16/16 08:15 POC Glucose 192 MG/DL (70 - 105) H 04/16/16 06:44 Hemoglobin A1c % 8.8 % (4.0-6.0) H 04/13/16 16:49 Calcium 8.8 mg/dL (8.6-10.3) 04/16/16 08:15 Total Bilirubin 1.5 mg/dL (0.3-1.0) H 04/16/16 08:15 AST 24 U/L (13-39) 04/16/16 08:15 ALT 16 U/L (7-52) 04/16/16 08:15 Alkaline Phosphatase 219 U/L (34-104) H 04/16/16 08:15 Troponin I 0.04 ng/mL (0.01-0.05) 04/13/16 16:49 B-Natriuretic Peptide 450.0 pg/mL (5.0-100.0) H 04/16/16 06:40 Total Protein 7.6 gm/dL (6.0-8.3) 04/16/16 08:15 Albumin 3.7 gm/dL (4.2-5.5) L 04/16/16 08:15 Globulin 3.9 gm/dL 04/16/16 08:15 Albumin/Globulin Ratio 1.0 (1.0-1.8) 04/16/16 08:15 Triglycerides 82 mg/dL (<150) 04/13/16 16:49 Cholesterol 89 mg/dL (<200) 04/13/16 16:49 LDL Cholesterol Direct 26 mg/dL (75-193) L 04/13/16 16:49 HDL Cholesterol 41 mg/dL (23-92) 04/13/16 16:49 TSH 3.26 uIU/ml (0.34-5.60) 04/13/16 16:49 RPR NONREACTIVE (NONREACTIVE) 04/13/16 16:49 - Physical Exam Vitals and I&O: Vital Signs Temp 98.0 F 04/16/16 04:00 Pulse 108 04/16/16 09:02 Resp 20 04/16/16 04:00 BP 126/71 04/16/16 09:02 Pulse Ox 95 04/16/16 04:00 Intake & Output 04/15/16 04/16/16 04/16/16 18:59 06:59 18:59 Intake Total 650 120 Balance 650 120 Intake: Oral 650 120 Other: # Voids 2 2 # Bowel Movements 1 Active Medications: Current Medications Acetaminophen (Tylenol) 650 mg PO BID [facility] Stop: 06/13/16 08:59 Last Admin: 04/16/16 09:02 Dose: 650 mg Carvedilol (Coreg) 6.25 mg PO BID [facility]ER Stop: 06/15/16 08:59 Last Admin: 04/16/16 09:02 Dose: 6.25 mg Docusate Sodium (Colace) 100 mg PO BID [facility]ER Stop: 06/13/16 08:59 Last Admin: 04/16/16 09:02 Dose: 100 mg Epoetin [place] (Epogen) 5,000 units SUBQ MoWeFr [facility] Stop: 06/15/16 11:56 Famotidine (Pepcid) 20 mg PO DAILY [facility]ER Stop: 06/15/16 08:59 Last Admin: 04/16/16 09:03 Dose: 20 mg Folic Acid (Folate) 1 mg PO DAILY PETER Stop: 06/13/16 08:59 Last Admin: 04/16/16 09:02 Dose: 1 mg Furosemide (Lasix) 40 mg PO DAILY PETER Stop: 06/13/16 08:59 Last Admin: 04/16/16 09:01 Dose: 40 mg Heparin Sodium/Dextrose (Heparin Drip) 25,000 units in 250 mls @ 16.5 mls/hr IV TITR PRN; Protocol; Titrate PRN Reason: PROTOCOL Stop: 06/14/16 22:26 Insulin Aspart (Novolog Insulin Sliding Scale) 0 units SUBQ ACHS PETER PRN Reason: Protocol Stop: 06/12/16 21:59 Last Admin: 04/16/16 06:50 Dose: 3 units Miscellaneous (Heparin Drip Per Pharmacy) 1 ea MC PRN PRN PRN Reason: PROTOCOL Stop: 06/14/16 22:28 Nortriptyline HCl (Pamelor) 10 mg PO HS [facility] Stop: 06/13/16 20:59 Promethazine HCl (Phenergan) 6.25 mg PO Q4H PETER Stop: 06/14/16 09:44 Last Admin: 04/16/16 09:03 Dose: 6.25 mg Ramipril (Altace) 2.5 mg PO DAILY [facility] Stop: 06/15/16 08:59 Last Admin: 04/16/16 09:01 Dose: 2.5 mg Simvastatin (Zocor) 40 mg PO HS [facility] Stop: 06/13/16 20:59 Last Admin: 04/16/16 00:09 Dose: Not Given Tamsulosin HCl (Flomax) 0.4 mg PO DAILY [facility] Stop: 06/13/16 08:59 Last Admin: 04/15/16 08:22 Dose: 0.4 mg General: Alert, Oriented x3 HEENT: Atraumatic Neck: Supple Cardiovascular: Regular rate Lungs: Other (Bilateral decreased air entry) Abdomen: Bowel sounds, Soft Extremities: Other (Leg edema 1+, pulses dimonished) Neurological: Other (Unstable gait) Skin: Other (Lower extremities skin is dark. ) Psych/Mental Status: Mental status NL - Procedures Procedures: Procedures Procedure Code Date PERFORMANCE OF URINARY FILTRATION, MULTIPLE [id number] 12/29/15 Assessment/Plan - Assessment Assessment: Patient is awake, calm. Dx: CHF, SVT, ESRD, PVD, Obesity. Patient had HD yesterday. - Plan Plan: Patient in home meds, lasix, awaitting echocardiogram.
[2016-04-16] MEDS ORDERED: Epoetin Alfa 20000 Units/mL Vial SUBQ SCH (11:57)
[2016-04-17] MEDS: INSULIN ASPART SLIDING SCALE 100 UNITS/ML UNIT SUBQ SCH ×3 (06:32→17:27)
--- NOTE | 2016-05-07 22:25 | Discharge Summary ---
CHIEF COMPLAINT: Weakness, palpitation and coughing. HISTORY OF PRESENT ILLNESS: This is the case of a 75-year-old male who has a diagnosis of end-stage renal disease, hypertension, AFib, CHF. The patient came to my office complaining of palpitation and coughing, reason why patient was sent to Emergency Room for evaluation and treatment. HOSPITAL COURSE AND TREATMENT: This patient was admitted in the Medical Surgical floor. He was continued with home medications and consult with Dr. Immanuel Irving, Cardiology and Nephrology were done and recommendations were followed. Dialysis was done at the hospital and with this treatment and after 5 days in the hospital, it was considered the patient received the maximum benefit of hospitalization and he could be sent to assisted for rehabilitation. Consult done in this case, Cardiology and Nephrology. CONDITION ON DISCHARGE: At the moment of the discharge, the patient was awake, alert, in no acute distress. DISPOSITION: The patient is sent to assisted to [place], [place]. IMPRESSION: 1. Acute congestive heart failure. 2. Atrial fibrillation. 3. End-stage renal disease. 4. Multifocal premature ventricular contractures. JOB# [id number]
== END 2016-04-17 20:45 | disposition short-term general hospital (02) | DRG 291 ==
LOC: ER 16:06 → TELE 19:35 → MSI 04-16 20:37
PROVIDERS: ADMIT General Practice; ATTEND General Practice
PROC: 5A1D60Z (ICD-10-PCS; principal; 2016-04-15)
DX: I13.2 Hypertensive heart and chronic kidney disease with heart failure and with stage 5 chronic kidney disease, or end stage renal disease (principal); N18.6 End stage renal disease; E11.22 Type 2 diabetes mellitus with diabetic chronic kidney disease; Z68.41 Body mass index [BMI] 40.0-44.9, adult; I47.1 Supraventricular tachycardia; I50.9 Heart failure, unspecified; D63.1 Anemia in chronic kidney disease; I49.3 Ventricular premature depolarization; E66.01 Morbid (severe) obesity due to excess calories; E78.5 Hyperlipidemia, unspecified; I25.10 Atherosclerotic heart disease of native coronary artery without angina pectoris; N40.0 Benign prostatic hyperplasia without lower urinary tract symptoms; E11.621 Type 2 diabetes mellitus with foot ulcer; E11.51 Type 2 diabetes mellitus with diabetic peripheral angiopathy without gangrene; E11.65 Type 2 diabetes mellitus with hyperglycemia; I48.2 Chronic atrial fibrillation; Z99.2 Dependence on renal dialysis
CPT/HCPCS: 36415-UA; 71010-TC; 80053-TC; 80061-TC; 82948-90; 83036-90; 83880-TC; 84443-TC; 84484-TC; 85025-TC; 85610-TC; 85730-TC; 86592-TC; 90732; 90937; 93005; 96374; J0885; J1644; J1815; J1940; J7030; Z7610

== ENCOUNTER 2016-11-20 17:53 | Inpatient (IN) | payer MEDICARE, MEDICAID ==
--- NOTE | 2016-11-20 18:01 | ED Physician Chart ---
ED Chief Complaint/HPI - Patient Information Date Seen:: 11/20/16 Time Seen:: 17:56 Chief Complaint:: weakness/ill History of Present Illness:: pt was sent for dialysis today but on arrival he seemed confused. was trying to pull out his dialysis cath. this is a mental change for this pt. pt w no focal acute neuro change no known fever. he also missed the prior dialysis session due to not feeling well. jaundice noted by staff. unclear if hepatic hx. pt complains of total body pain/aches. no focal pain. no n/v/d. no rash. some mild VALDEZ. no abd pain. Allergies:: Allergies Allergy/AdvReac Type Severity Reaction Status Date / Time No Known Allergies Allergy Verified 12/28/15 21:02 Historian:: Patient, EMS Review:: Transfer documents Reviewed ED Review of Systems - Review of Systems General/Constitutional: No fever, Chills, No weight loss, No weakness, No diaphoresis, No edema, No loss of appetite, Other (gen aches) Skin: No skin lesions, No rash, No bruising Head: No headache, No light-headedness Eyes: No loss of vision, No pain, No diplopia ENT: No earache, No nasal drainage, No sore throat, No tinnitus Neck: No neck pain, No swelling, No thyromegaly, No stiffness, No mass noted Cardio Vascular: No chest pain, No palpitations, No PND, No orthopnea, No edema Pulmonary: No SOB, No cough, No sputum, No wheezing GI: No nausea, No vomiting, No diarrhea, No pain, No melena, No hematochezia, No constipation, No hematemesis G/U: No dysuria, No frequency, No hematuria Musculoskeletal: No bone or joint pain, No back pain, No muscle pain Endocrine: No polyuria, No polydipsia Psychiatric: No prior psych history, No depression, No anxiety, No suicidal ideation Hematopoietic: No bruising, No lymphadenopathy Allergic/Immuno: No urticaria, No angioedema Neurological: No syncope, No focal symptoms, No weakness, No paresthesia, No headache, No seizure, No dizziness, No confusion, No vertigo ED Past Medical History - Past Medical History Past Medical History: DM, ESRD (on dialysis), Other (metabolic encephalopathy, a fib hx) Social History: Care Facility Medication: Reviewed Family Medical History - Family Member Mother History Unknown: Yes Ethnicity: Unknown Living Status: Unknown Hx Family Cancer: No Hx Family Coronary Artery Disease: No Hx Family Congestive Heart Failure: No Hx Family Hypertension: No Hx Family Stroke: No Hx Family Diabetes: No Hx Family Seizures: No Hx Family Dementia: No Hx Family AIDS: No Hx Family HIV: No Hx Family COPD: No Hx Family Hepatitis: No Hx Family Psychiatric Problems: No Hx Family Tuberculosis: No ED Physical Exam - Physical Examination General/Constitutional: Awake, Well-developed, well-nourished, Alert, No distress, GCS 15, Non-toxic appearing, Ambulatory Other Gen/Cons comments:: mod obese. alert..talking. no overt distress. woody dark skin at b ankles w mild equal edmema (appears chronic) shunt at left bicep..no infection Head: Atraumatic Eyes: Lids, conjuctiva normal, PERRL, EOMI Skin: Nl inspection, No rash, No skin lesions, No ecchymosis, Well hydrated, No lymphadenopathy ENMT: External ears, nose nl, Nasal exam nl, Lips, teeth, gums nl Neck: Nontender, Full ROM w/o pain, No JVD, No nuchal rigidity, No bruit, No mass, No stridor Respiratory: Nl effort/Exclusion, Clear to Auscultation, No Wheeze/Rhonchi/Rales Cardio Vascular: RRR, No murmur, gallop, rubs, NL S1 S2 GI: No tenderness/rebounding/guarding, No organomegaly, No hernia, Normal BS's, Nondistended, No mass/bruits, No McBurney tenderness Other GI comments:: liver is enlarged/firm but nontndr. : No CVA tenderness Extremities: No tenderness or effusion, Full ROM, normal strength in all extremities, Normal digits & nails Other Extremities comments:: woody dark chronic looking edema of b ankles w no warmth or redness. Neuro/Psych: Alert/oriented, DTR's symmetric, Normal sensory exam, Normal motor strength, Judgement/insight normal, Mood normal, Normal gait, No focal deficits Misc: normal gait, Normal back, No paraspinal tenderness ED Labs/Radiology/EKG Results - Lab Results Results: Laboratory Tests 11/20/16 11/20/16 11/20/16 18:10 18:10 18:10 WBC 6.5 RBC 3.92 Hgb 11.5 L Hct 34.7 L D MCV 88.5 MCH 29.2 MCHC Differential 33.0 RDW 17.3 Plt Count 110 L D MPV 8.4 Neutrophils % 77.3 Lymphocytes % 12.1 L Monocytes % 7.6 Eosinophils % 3.0 Basophils % 0.0 PT INR PTT (Actin FS) Sodium 136 Potassium 5.2 H Chloride 99 Carbon Dioxide 25.7 Anion Gap 16.5 H BUN 46 H Creatinine 5.0 H* Est GFR ( Amer) TNP Est GFR (Non-Af Amer) TNP BUN/Creatinine Ratio 9.2 Glucose 110 H Whole Bld Lactic Acid 0.77 Calcium 8.9 Total Bilirubin 1.5 H AST 23 ALT 17 Alkaline Phosphatase 320 H Ammonia B-Natriuretic Peptide Total Protein 6.8 Albumin 3.9 L Globulin 2.9 Albumin/Globulin Ratio 1.3 Lipase 37 Digoxin 11/20/16 11/20/16 11/20/16 18:10 18:10 18:10 WBC RBC Hgb Hct MCV MCH MCHC Differential RDW Plt Count MPV Neutrophils % Lymphocytes % Monocytes % Eosinophils % Basophils % PT 12.1 H INR 1.15 PTT (Actin FS) 26.5 Sodium Potassium Chloride Carbon Dioxide Anion Gap BUN Creatinine Est GFR ( Amer) Est GFR (Non-Af Amer) BUN/Creatinine Ratio Glucose Whole Bld Lactic Acid Calcium Total Bilirubin AST ALT Alkaline Phosphatase Ammonia 126 H B-Natriuretic Peptide 448.0 H Total Protein Albumin Globulin Albumin/Globulin Ratio Lipase Digoxin 11/20/16 18:10 WBC RBC Hgb Hct MCV MCH MCHC Differential RDW Plt Count MPV Neutrophils % Lymphocytes % Monocytes % Eosinophils % Basophils % PT INR PTT (Actin FS) Sodium Potassium Chloride Carbon Dioxide Anion Gap BUN Creatinine Est GFR ( Amer) Est GFR (Non-Af Amer) BUN/Creatinine Ratio Glucose Whole Bld Lactic Acid Calcium Total Bilirubin AST ALT Alkaline Phosphatase Ammonia B-Natriuretic Peptide Total Protein Albumin Globulin Albumin/Globulin Ratio Lipase Digoxin 0.2 L - Radiology Results Results: cxr cmegally, mild chf. - EKG Interpretations EKG Time:: 18:00 Rate & Rhythm: afib [place]: 138 Intervals: nrml st/t waves ED Septic Shock - . Is Septic Shock (SBP<90, OR Lactate>4 mmol\L) present?: No ED Reassessment (Disposition) - Reassessment Reassessment:: staff notified to call admit (7;30pm) case dw Dr Celaya..he is admitting. pt does have a hepatic hx and has been refusing to atke his lactulose lately per info Dr Bar hopson.. he is admitting pt.. Reassessment Condition:: Unchanged - Diagnosis Diagnosis:: 1 confusion 2nd to hepatic encephalopathy 2 renal failure / dialysis patient (elevated BUN/Cr and BNP) - Patient Disposition Admitted to:: Telemetry Condition at Disposition:: Unchanged
[2016-11-20 18:20] LABS: % LYMPHOCYTES 12.1 % (20.0-50.0); % MONOCYTES 7.6 % (2.0-10.0); % NEUTROPHILS 77.3 % (40.0-80.0); HEMOGLOBIN 11.5 gm/dL (12-16); MEAN CELL VOLUME 88.5 fl (80-99); MEAN CORPUSCULAR HEMOGLOBIN 29.2 pg (27.0-31.0); MEAN PLATELET VOLUME 8.4 fl; RED BLOOD COUNT 3.92 Mil/cmm (3.80-5.80); RED CELL DISTRIBUTION WIDTH 17.3 % (11.5-20.0); WHITE BLOOD COUNT 6.5 Th/cmm (4.8-10.8)
[2016-11-20 18:34] LABS: HEMATOCRIT 34.7 % (41.0-60)
[2016-11-20 18:35] LABS: PLATELET COUNT 110 Th/cmm (150-400)
[2016-11-20 18:39] LABS: ALB/GLOB RATIO 1.3 (1.0-1.8); ALKALINE PHOSPHATASE 320 U/L (34-104); ANION GAP 16.5 (7.0-16.0); BILIRUBIN,TOTAL 1.5 mg/dL (0.3-1.0); BUN - UREA NITROGEN 46 mg/dL (7-25); BUN/CREATININE RATIO 9.2; CALCIUM SERUM 8.9 mg/dL (8.6-10.3); CARBON DIOXIDE 25.7 mEq/L (21.0-31.0); CHLORIDE 99 mEq/L (98-107); GLUCOSE 110 mg/dL (70-105); LIPASE 37 U/L (11-82); POTASSIUM SERUM 5.2 mEq/L (3.5-5.1); SGOT 23 U/L (13-39); SGPT/ALT 17 U/L (7-52); SODIUM SERUM 136 mEq/L (136-145)
[2016-11-20 18:45] LABS: INR 1.15 (0.5-1.4); PROTHROMBIN TIME (TEST) 12.1 SECONDS (9.5-11.5)
[2016-11-20] MEDS ORDERED: Lactulose 10 Gm/15 mL 30mL UDC PO SCH (22:30)
[2016-11-21] MEDS: Lactulose 10 Gm/15 mL 30mL UDC PO SCH ×4 (01:33→21:02)
[2016-11-21 04:44] VITALS: BP 132/80
[2016-11-21 05:46] LABS: % BASOPHILS 0.3 % (0.0-2.0); % LYMPHOCYTES 16.6 % (20.0-50.0); % MONOCYTES 8.3 % (2.0-10.0); % NEUTROPHILS 71.8 % (40.0-80.0); HEMATOCRIT 34.7 % (41.0-60); HEMOGLOBIN 11.6 gm/dL (12-16); MEAN CELL VOLUME 87.1 fl (80-99); MEAN CORPUSCULAR HGB CONC 33.3 pg (28.0-36.0); MEAN PLATELET VOLUME 8.5 fl; NEUTROPHILE ABSOLUTE 3.9 Th/cmm (1.8-8.0); RED BLOOD COUNT 3.99 Mil/cmm (3.80-5.80); RED CELL DISTRIBUTION WIDTH 17.2 % (11.5-20.0); WHITE BLOOD COUNT 5.4 Th/cmm (4.8-10.8)
[2016-11-21 05:53] LABS: PLATELET COUNT 97 Th/cmm (150-400)
[2016-11-21 06:08] LABS: ALB/GLOB RATIO 1.4 (1.0-1.8); ALKALINE PHOSPHATASE 299 U/L (34-104); ANION GAP 16.2 (7.0-16.0); BILIRUBIN,TOTAL 1.6 mg/dL (0.3-1.0); BUN - UREA NITROGEN 53 mg/dL (7-25); BUN/CREATININE RATIO 9.5; CARBON DIOXIDE 28.3 mEq/L (21.0-31.0); CHLORIDE 99 mEq/L (98-107); GLUCOSE 90 mg/dL (70-105); POTASSIUM SERUM 5.5 mEq/L (3.5-5.1); SGOT 18 U/L (13-39); SGPT/ALT 14 U/L (7-52); SODIUM SERUM 138 mEq/L (136-145)
[2016-11-21 06:11] LABS: CREATININE - SERUM 5.6 mg/dL (0.7-1.3)
--- NOTE | 2016-11-21 08:18 | Diagnostic Imaging Report ---
Portable chest x-ray HISTORY: Shortness of breath. The heart is enlarged. There are hazy bilateral infiltrates pulmonary vascular redistribution. The changes suggest findings of congestive heart failure with mild pulmonary edema. Question minimal bilateral pleural effusions. IMPRESSION: 1. Cardiomegaly along with changes suggesting a degree of congestive heart failure. Clinical correlation is needed.
--- NOTE | 2016-11-21 08:34 | History and Physical ---
History of Present Illness - HPI Chief Complaint: Confusion HPI: This is a patient that I follow in a SNF, I received a call stating that patient has been refusing to take lactulosa, patient was send to [facility] and HD was not done due that patient was confused trying to savannah his catheter. Patient was send to ER for Evaluation. During ER examination was found ammonia high. 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: Report: No Pertinent Hx GI: Report: Other (Cirrhosis) Psych: Report: Anxiety Musculoskeletal: Report: Weakness Rheumatologic: Report: No pertinent Hx Infectious Disease: Report: No Pertinent Hx Renal/: Report: Other (ESRD) Endocrine: Report: Diabetes Dermatology: Report: Rash - Past Surgical History Past Surgical History: No pertinent Hx Family Medical History - Family Member Mother History Unknown: Yes Ethnicity: Unknown Living Status: Unknown Hx Family Cancer: No Hx Family Coronary Artery Disease: No Hx Family Congestive Heart Failure: No Hx Family Hypertension: No Hx Family Stroke: No Hx Family Diabetes: No Hx Family Seizures: No Hx Family Dementia: No Hx Family AIDS: No Hx Family HIV: No Hx Family COPD: No Hx Family Hepatitis: No Hx Family Psychiatric Problems: No Hx Family Tuberculosis: No Social History Smoke: No Alcohol: None Drugs: None Lives: [facility] Domestic Violence: Negative - Medications Home Medications: Home Medication Medication Instructions Recorded Type Atorvastatin Calcium [Lipitor] 20 mg PO DAILY #0 tab 01/02/16 Rx Insulin Aspart Sliding Scale See Protocol SUBQ ACHS #0 unit 01/02/16 Rx [NovoLOG INSULIN SLIDING SCALE] Nortriptyline [Pamelor] 10 mg PO HS #0 cap 01/02/16 Rx Folic Acid [Folate] 1 mg PO DAILY 04/13/16 History Tamsulosin HCl [Flomax] 0.4 mg PO DAILY 04/13/16 History Acetaminophen [Tylenol] 650 mg PO BID #0 tab 04/17/16 Rx Carvedilol [Coreg] 6.25 mg PO BID #0 tab 04/17/16 Rx Docusate Sodium [Colace] 100 mg PO BID #0 cap 04/17/16 Rx Epoetin [place] [Epogen] 5,000 units SUBQ MoWeFr #0 ml 04/17/16 Rx Famotidine [Pepcid] 20 mg PO DAILY #0 tab 04/17/16 Rx Furosemide [Lasix] 40 mg PO DAILY #0 tab 04/17/16 Rx Heparin 25,000 Units In D5W 25,000 units IV TITR PRN #0 bag 04/17/16 Rx [Heparin Drip] Insulin Aspart Sliding Scale See Protocol SUBQ ACHS #0 unit 04/17/16 Rx [NovoLOG INSULIN SLIDING SCALE] Nortriptyline [Pamelor] 10 mg PO HS #0 cap 04/17/16 Rx Promethazine [Phenergan] 6.25 mg PO Q4H #0 udc 04/17/16 Rx Ramipril [Altace*] 2.5 mg PO DAILY #0 cap 04/17/16 Rx Simvastatin [Zocor] 40 mg PO HS #0 tab 04/17/16 Rx Tamsulosin [Flomax] 0.4 mg PO DAILY #0 cap 04/17/16 Rx - Allergies Allergies/Adverse Reactions: Allergies Allergy/AdvReac Type Severity Reaction Status Date / Time No Known Allergies Allergy Verified 12/28/15 21:02 Review of Systems - Review of Systems Constitutional: Report: Weakness Eyes: Report: No Significant ENT: Report: No Significant Respiratory: Report: No Significant Cardiovascular: Report: Light Headedness Gastrointestinal: Report: Nausea Genitourinary: Report: No Significant Musculoskeletal: Report: Other (Weakness) Skin: Report: No Significant Neurological: Report: Weakness, Confusion Physical Exam - Physical Exam HEENT: Report: Ears Nose Throat within normal limits Neck: Report: Within normal limits Cardiovascular Systems: Report: Regular, Rate and Rhythm Respiratory: Report: Breath Sounds are within normal limits Abdomen: Report: Non-tender to palpation (Abdomen distended) Back: Report: Inspection of back is within normal limits. Extremities: Report: Non-tender to palpation. Skin: Report: Warm, Dry Neuro/Psych: Report: Depressed affect (Some confusion) - Lab Results All Lab Results last 24 hours: Laboratory Last Values WBC 5.4 Th/cmm (4.8-10.8) 11/21/16 05:20 RBC 3.99 Mil/cmm (3.80-5.80) 11/21/16 05:20 Hgb 11.6 gm/dL (12-16) L 11/21/16 05:20 Hct 34.7 % (41.0-60) L 11/21/16 05:20 MCV 87.1 fl (80-99) 11/21/16 05:20 MCH 29.0 pg (27.0-31.0) 11/21/16 05:20 MCHC Differential 33.3 pg (28.0-36.0) 11/21/16 05:20 RDW 17.2 % (11.5-20.0) 11/21/16 05:20 Plt Count 97 Th/cmm (150-400) L 11/21/16 05:20 MPV 8.5 fl 11/21/16 05:20 Neutrophils % 71.8 % (40.0-80.0) 11/21/16 05:20 Lymphocytes % 16.6 % (20.0-50.0) L 11/21/16 05:20 Monocytes % 8.3 % (2.0-10.0) 11/21/16 05:20 Eosinophils % 3.0 % (0.0-5.0) 11/21/16 05:20 Basophils % 0.3 % (0.0-2.0) 11/21/16 05:20 PT 12.1 SECONDS (9.5-11.5) H 11/20/16 18:10 INR 1.15 (0.5-1.4) 11/20/16 18:10 PTT (Actin FS) 26.5 SECONDS (26.0-38.0) 11/20/16 18:10 Sodium 138 mEq/L (136-145) 11/21/16 05:20 Potassium 5.5 mEq/L (3.5-5.1) H 11/21/16 05:20 Chloride 99 mEq/L (98-107) 11/21/16 05:20 Carbon Dioxide 28.3 mEq/L (21.0-31.0) 11/21/16 05:20 Anion Gap 16.2 (7.0-16.0) H 11/21/16 05:20 BUN 53 mg/dL (7-25) H 11/21/16 05:20 Creatinine 5.6 mg/dL (0.7-1.3) H* 11/21/16 05:20 Est GFR ( Amer) TNP 11/21/16 05:20 Est GFR (Non-Af Amer) TNP 11/21/16 05:20 BUN/Creatinine Ratio 9.5 11/21/16 05:20 Glucose 90 mg/dL (70-105) 11/21/16 05:20 Whole Bld Lactic Acid 0.77 mmol/L (0.60-1.99) 11/20/16 18:10 Calcium 9.0 mg/dL (8.6-10.3) 11/21/16 05:20 Total Bilirubin 1.6 mg/dL (0.3-1.0) H 11/21/16 05:20 AST 18 U/L (13-39) 11/21/16 05:20 ALT 14 U/L (7-52) 11/21/16 05:20 Alkaline Phosphatase 299 U/L (34-104) H 11/21/16 05:20 Ammonia 81 umol/L (16-53) H 11/21/16 05:20 B-Natriuretic Peptide 448.0 pg/mL (5.0-100.0) H 11/20/16 18:10 Total Protein 6.6 gm/dL (6.0-8.3) 11/21/16 05:20 Albumin 3.8 gm/dL (4.2-5.5) L 11/21/16 05:20 Globulin 2.8 gm/dL 11/21/16 05:20 Albumin/Globulin Ratio 1.4 (1.0-1.8) 11/21/16 05:20 Lipase 37 U/L (11-82) 11/20/16 18:10 TSH 3.75 uIU/ml (0.34-5.60) 11/21/16 05:20 Digoxin 0.2 ng/ml (0.8-2.0) L 11/20/16 18:10 Laboratory Results - last 24 hr 11/21/16 11/21/16 11/21/16 05:20 05:20 05:20 WBC 5.4 RBC 3.99 Hgb 11.6 L Hct 34.7 L MCV 87.1 MCH 29.0 MCHC Differential 33.3 RDW 17.2 Plt Count 97 L MPV 8.5 Neutrophils % 71.8 Lymphocytes % 16.6 L Monocytes % 8.3 Eosinophils % 3.0 Basophils % 0.3 Sodium 138 Potassium 5.5 H Chloride 99 Carbon Dioxide 28.3 Anion Gap 16.2 H BUN 53 H Creatinine 5.6 H* Est GFR ( Amer) TNP Est GFR (Non-Af Amer) TNP BUN/Creatinine Ratio 9.5 Glucose 90 Calcium 9.0 Total Bilirubin 1.6 H AST 18 ALT 14 Alkaline Phosphatase 299 H Ammonia Total Protein 6.6 Albumin 3.8 L Globulin 2.8 Albumin/Globulin Ratio 1.4 TSH 3.75 11/21/16 05:20 WBC RBC Hgb Hct MCV MCH MCHC Differential RDW Plt Count MPV Neutrophils % Lymphocytes % Monocytes % Eosinophils % Basophils % Sodium Potassium Chloride Carbon Dioxide Anion Gap BUN Creatinine Est GFR ( Amer) Est GFR (Non-Af Amer) BUN/Creatinine Ratio Glucose Calcium Total Bilirubin AST ALT Alkaline Phosphatase Ammonia 81 H Total Protein Albumin Globulin Albumin/Globulin Ratio TSH - Assessment Assessment: Patient is awake, confused, hands tremor, in no acute distress. Dx: Hepatic encephalopaty, ESRD on HD, A-fib, DM, HTN, CHF. - Plan Plan: Patient is in lactulose, rifamixin, Insulin sliding scale, continue with SNF meds. Consults with Nephro, Cardio, GI, are requested.
[2016-11-21] MEDS: INSULIN ASPART SLIDING SCALE 100 UNITS/ML UNIT SUBQ SCH ×4 (09:44→18:34)
[2016-11-21] MEDS: Atorvastatin Calcium 10 MG TAB PO SCH (09:45)
[2016-11-21] MEDS ORDERED: INSULIN ASPART SLIDING SCALE 100 UNITS/ML UNIT SUBQ SCH (11:30)
[2016-11-21] MEDS ORDERED: VTE Chemical Prophylaxis Screen/Admission MC PRN (15:39)
--- NOTE | 2016-11-21 20:41 | Consultation ---
DATE OF CONSULTATION: 11/21/2016 INPATIENT CONSULTATION NOTE REFERRING PHYSICIAN: Dr. Celaya. REASON FOR CONSULTATION: Altered level of consciousness. HISTORY OF PRESENT ILLNESS: This is a 76-year-old male who has underlying history of renal failure, relying on dialysis, has been told in the past that he had alcoholic liver disease. He was admitted because of confusion with an elevated ammonia level. He denies having any abdominal pain, GI bleeding, melena, hematochezia, hematemesis, or coffee-ground emesis. PAST MEDICAL HISTORY: Atrial fibrillation, coronary artery disease, congestive heart failure, hypertension, chronic kidney disease, cirrhosis, and diabetes. PAST SURGICAL HISTORY: None to abdomen recently. FAMILY HISTORY: Noncontributory. SOCIAL HISTORY: No tobacco, alcohol, or IV drug usage, has been sober. ALLERGIES: None. CURRENT MEDICATIONS: Tylenol, Lipitor, Coreg, Colace, Pepcid, Lasix, insulin, lactulose, Xifaxan, and Flomax. REVIEW OF SYSTEMS: Ten-point review of systems was performed, pertinent positive with recent infusion, chronic kidney disease. All other systems were otherwise negative. PHYSICAL EXAMINATION: VITAL SIGNS: Temperature is 97.5, breathing at a rate of 18, pulse of 93, blood pressure 121/73, satting 96%. GENERAL: Overweight, in no apparent distress. EYES: Anicteric, normal conjunctivae. HEENT: Normocephalic and atraumatic. Moist mucous membranes. NECK: Soft, supple. CHEST: Coarse breath sounds. CARDIOVASCULAR: Regular rate and rhythm. ABDOMEN: Soft, nontender, and nondistended. SKIN: Warm and dry. EXTREMITIES: Reveal no cyanosis. PSYCHOLOGICAL: Awake and alert, more specifically alert and oriented x 3. LABORATORY DATA: Show a white count of 5.4, hemoglobin 11.6, and platelets of 97,000. INR is 1.15, creatinine 5.6, total bilirubin 1.6, AST 18, ALT 14, alkaline phosphatase 299. Lipase is 37. IMPRESSION: This is a 76-year-old male with altered level of consciousness, likely due to hepatic encephalopathy given his elevated ammonia level. It is believed that the patient likely has underlying cirrhosis, stemming from the heavy consumption of alcohol. His labs are consistent with cirrhosis. He does have a low platelet count and mild coagulopathy, all stemming from cirrhosis. PLAN: 1. Continue lactulose and Xifaxan. 2. Check UA to rule out urinary tract infection. 3. Check an abdominal ultrasound to rule out the possibility of ascites and . 4. Check her hepatitis panel. 5. The patient will need to establish care with pre sales architect for ongoing management. Thank you for allowing me to participate. Please call me if any questions. JOB# [id number]
--- NOTE | 2016-11-21 21:21 | Consultation ---
DATE OF CONSULTATION: 11/21/[address] Celaya. HISTORY AND PHYSICAL: This is a 76-year-old male patient who was at the Dialysis Center. The patient was confused following this. The patient was brought to the Emergency Room. The patient was found to have atrial fibrillation, congestive heart failure with hepatic encephalopathy, elevated ammonia level, and cardiac consult is requested. No history of PND or orthopnea. PAST MEDICAL HISTORY: Congestive heart failure; angina; CKD stage V; end-stage renal disease, on dialysis; iron deficiency anemia; hypertension; and atrial fibrillation. FAMILY HISTORY: Unremarkable. SOCIAL HISTORY: No history of smoking or alcohol abuse. ALLERGIES: None. PHYSICAL EXAMINATION: VITAL SIGNS: Blood pressure 130/80, pulse 80, irregular, respirations 28. HEAD: Normocephalic. No lumps or bumps. EYES: Pupils are equal and reactive to light. Fundi show AV nicking, sclerae white, and conjunctivae pink. NECK: Carotid 2+. Normal upstroke. JVD 10 cm above the sternal angle. Thyroid not palpable. Lymph nodes not palpable. CHEST: Shows increased AP diameter. No kyphosis or scoliosis. LUNGS: Bilateral rales. Decreased breath sounds in both the bases. HEART: PMI sixth intercostal space with lateral to midclavicular line. S1, S2, S3, S4. S1 irregular. Systolic murmur, grade 2/6, lower left sternal border without radiation. ABDOMEN: Soft. Hepatojugular reflux positive. Bowel sounds active. NEUROLOGIC: The patient is confused secondary to hepatic encephalopathy. CLINICAL IMPRESSION: 1. Atrial fibrillation. 2. Hepatic encephalopathy. 3. Congestive heart failure. 4. Diastolic dysfunction. 5. Angina. 6. Chronic kidney disease stage V. 7. End-stage renal disease, on dialysis. 8. Iron deficiency anemia. 9. Hypertension. PLAN: The patient to have ultrafiltration. Start the patient on lactulose and control the heart. JOB# [id number]
--- NOTE | 2016-11-21 22:38 | Consultation ---
DATE OF CONSULTATION: 11/21/2016 IDENTIFYING DATA: This is a 76-year-old male. CHIEF COMPLAINT: Agitation, trying to pull needles out at dialysis. HISTORY OF PRESENT ILLNESS: This patient has been on hemodialysis for about 2-3 years according to him. He dialyzes at the [facility]. He dialyzes on Mondays, Wednesdays, and Fridays. The patient apparently was found to be agitated at dialysis, was brought to the Emergency Room. His ammonia level was in the 80s. The patient has been admitted with hepatic encephalopathy. He apparently has a history of liver disease. He has a history of diabetes for over 10 years that caused his kidney failure according to him. He does admit to alcohol misuse disorder, but stopped drinking over 20 years ago. The patient also is unsure if he has any history of hepatitis. PAST MEDICAL HISTORY: ESRD, dialysis status, diabetes and venous stasis dermatitis as well as thrombocytopenia, liver disease, and atrial fibrillation. The patient's past medical history also shows hyperlipidemia and diabetes with other specified manifestations. CURRENT MEDICATIONS: Famotidine 20 mg p.o. daily, Lasix 40 mg p.o. daily, insulin sliding scale, Pamelor 10 mg p.o. at bedtime, promethazine, ramipril 2.5 mg p.o. daily, simvastatin 40 mg p.o. daily, and Flomax 0.4 mg p.o. daily. PREVIOUS SURGICAL HISTORY: Denies any abdominal surgeries or heart surgeries or coronary stents. He has had a left arm AV fistula placed. DRUG ALLERGIES: None known. FAMILY HISTORY: Noncontributory. SOCIAL HISTORY: Used to have alcohol misuse disorder, stopped drinking 20 years ago. Smoking, the patient does not smoke. He lives in a chcf and he is , has only one son. 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 REVIEW OF SYSTEMS: No chest pain, nausea, or vomiting. No abdominal pain. No diarrhea, dysuria, or gross hematuria. No swelling of the lower extremities. PHYSICAL EXAMINATION: VITAL SIGNS: The patient's blood pressure is 126/75, pulse rate is 74, and the patient's pulse is 82 and his temperature is 97.5. GENERAL: Chronically ill-appearing male, in no acute distress. HEENT: Sclerae was anicteric. External nose is normal. The oropharynx was moist. NECK: Soft. HEART: Regular rate and rhythm. LUNGS: Sounds are clear. ABDOMEN: Soft, obese. No obvious hepatosplenomegaly. GENITOURINARY AND RECTAL: Not done. The lower extremity shows some thickened skin bilaterally. He has a left arm AV fistula with a good bruit and thrill. NEUROLOGIC: Not done. LABORATORY DATA: Shows a white count of 5.4, hemoglobin 11.6, hematocrit 34.7, and platelet count is 97,000. The patient's PT is 12.1. The patient's sodium is 138, potassium 5.5, chloride 99, CO2 is 28, BUN is 53, and creatinine is 5.6. Glucose is 90. Calcium is 9.0. Total bilirubin 1.6. AST 18, ALT 14, alkaline phosphatase 299 and elevated. Beta natriuretic peptide 448 yesterday. ASSESSMENT AND PLAN: 1. Hepatic encephalopathy. The patient may have fatty infiltration of the liver. May have alcoholic liver cirrhosis. Continue to monitor and follow ammonia level, give lactulose and repeat ammonia level. 2. End-stage renal disease, dialysis status with hyperkalemia. We will arrange for hemodialysis to take place today. 3. Diabetes, stable. Continue to monitor and continue with Glucoscan. 4. Anemia associated with chronic kidney disease, stable. Continue to monitor. Thrombocytopenia may be related to liver disease, rule out heparin-induced thrombocytopenia if the patient's platelet count continues to drop. 5. Hypertension, controlled. 6. Monitor hyperlipidemia, stable. Continue with statin therapy as indicated. 7. Diabetes with other specified manifestations, stable. Continue to monitor. 8. Venous stasis changes of the lower extremities, stable at this time. Continue to monitor. The above findings and diagnoses were derived by examining the patient, interviewing him, and reviewing his medical records. The patient's medication list was reviewed in its entirety by me today. Thank you very much for asking me to assist in the care of the patient. JOB# [id number]
[2016-11-22] MEDS: INSULIN ASPART SLIDING SCALE 100 UNITS/ML UNIT SUBQ SCH ×4 (00:48→17:25)
[2016-11-22 05:06] LABS: MEAN CELL VOLUME 87.3 fl (80-99); WHITE BLOOD COUNT 5.5 Th/cmm (4.8-10.8)
[2016-11-22 05:11] LABS: % BASOPHILS 0.2 % (0.0-2.0); % EOSINOPHILS 2.8 % (0.0-5.0); % LYMPHOCYTES 16.2 % (20.0-50.0); % NEUTROPHILS 72.8 % (40.0-80.0); HEMATOCRIT 33.9 % (41.0-60); HEMOGLOBIN 11.3 gm/dL (12-16); MEAN CORPUSCULAR HEMOGLOBIN 29.1 pg (27.0-31.0); MEAN CORPUSCULAR HGB CONC 33.4 pg (28.0-36.0); MEAN PLATELET VOLUME 8.7 fl; PLATELET COUNT 101 Th/cmm (150-400); RED BLOOD COUNT 3.88 Mil/cmm (3.80-5.80); RED CELL DISTRIBUTION WIDTH 16.7 % (11.5-20.0)
[2016-11-22 05:16] LABS: ALB/GLOB RATIO 1.3 (1.0-1.8); ALKALINE PHOSPHATASE 303 U/L (34-104); ANION GAP 13.1 (7.0-16.0); BILIRUBIN,TOTAL 1.5 mg/dL (0.3-1.0); BUN - UREA NITROGEN 35 mg/dL (7-25); BUN/CREATININE RATIO 7.4; CALCIUM SERUM 8.7 mg/dL (8.6-10.3); CHLORIDE 98 mEq/L (98-107); GLUCOSE 90 mg/dL (70-105); POTASSIUM SERUM 4.1 mEq/L (3.5-5.1); SGOT 19 U/L (13-39); SGPT/ALT 15 U/L (7-52); SODIUM SERUM 137 mEq/L (136-145)
[2016-11-22 05:29] LABS: CREATININE - SERUM 4.7 mg/dL (0.7-1.3)
--- NOTE | 2016-11-22 08:52 | General Progress Note ---
Subjective - Review of Systems Service Date: 11/22/16 Subjective: I am better Objective - Results Result Diagrams: 11/22/16 04:41 11/22/16 04:41 Recent Labs: Laboratory Last Values WBC 5.5 Th/cmm (4.8-10.8) 11/22/16 04:41 RBC 3.88 Mil/cmm (3.80-5.80) 11/22/16 04:41 Hgb 11.3 gm/dL (12-16) L 11/22/16 04:41 Hct 33.9 % (41.0-60) L 11/22/16 04:41 MCV 87.3 fl (80-99) 11/22/16 04:41 MCH 29.1 pg (27.0-31.0) 11/22/16 04:41 MCHC Differential 33.4 pg (28.0-36.0) 11/22/16 04:41 RDW 16.7 % (11.5-20.0) 11/22/16 04:41 Plt Count 101 Th/cmm (150-400) L 11/22/16 04:41 MPV 8.7 fl 11/22/16 04:41 Neutrophils % 72.8 % (40.0-80.0) 11/22/16 04:41 Lymphocytes % 16.2 % (20.0-50.0) L 11/22/16 04:41 Monocytes % 8.0 % (2.0-10.0) 11/22/16 04:41 Eosinophils % 2.8 % (0.0-5.0) 11/22/16 04:41 Basophils % 0.2 % (0.0-2.0) 11/22/16 04:41 PT 12.1 SECONDS (9.5-11.5) H 11/20/16 18:10 INR 1.15 (0.5-1.4) 11/20/16 18:10 PTT (Actin FS) 26.5 SECONDS (26.0-38.0) 11/20/16 18:10 Sodium 137 mEq/L (136-145) 11/22/16 04:41 Potassium 4.1 mEq/L (3.5-5.1) 11/22/16 04:41 Chloride 98 mEq/L (98-107) 11/22/16 04:41 Carbon Dioxide 30.0 mEq/L (21.0-31.0) 11/22/16 04:41 Anion Gap 13.1 (7.0-16.0) 11/22/16 04:41 BUN 35 mg/dL (7-25) H 11/22/16 04:41 Creatinine 4.7 mg/dL (0.7-1.3) H* 11/22/16 04:41 Est GFR ( Amer) TNP 11/22/16 04:41 Est GFR (Non-Af Amer) TNP 11/22/16 04:41 BUN/Creatinine Ratio 7.4 11/22/16 04:41 Glucose 90 mg/dL (70-105) 11/22/16 04:41 POC Glucose 80 MG/DL (70 - 105) 11/22/16 05:25 Whole Bld Lactic Acid 0.77 mmol/L (0.60-1.99) 11/20/16 18:10 Calcium 8.7 mg/dL (8.6-10.3) 11/22/16 04:41 Total Bilirubin 1.5 mg/dL (0.3-1.0) H 11/22/16 04:41 AST 19 U/L (13-39) 11/22/16 04:41 ALT 15 U/L (7-52) 11/22/16 04:41 Alkaline Phosphatase 303 U/L (34-104) H 11/22/16 04:41 Ammonia 57 umol/L (16-53) H 11/22/16 04:41 B-Natriuretic Peptide 676.0 pg/mL (5.0-100.0) H 11/22/16 04:41 Total Protein 6.7 gm/dL (6.0-8.3) 11/22/16 04:41 Albumin 3.8 gm/dL (4.2-5.5) L 11/22/16 04:41 Globulin 2.9 gm/dL 11/22/16 04:41 Albumin/Globulin Ratio 1.3 (1.0-1.8) 11/22/16 04:41 Lipase 37 U/L (11-82) 11/20/16 18:10 TSH 3.75 uIU/ml (0.34-5.60) 11/21/16 05:20 Digoxin 0.2 ng/ml (0.8-2.0) L 11/20/16 18:10 - Physical Exam Vitals and I&O: Vital Signs Temp 97 F 11/22/16 04:00 Pulse 96 11/22/16 04:00 Resp 20 11/22/16 04:00 BP 124/69 11/22/16 04:00 Pulse Ox 97 11/22/16 04:00 Intake & Output 11/21/16 11/22/16 11/22/16 18:59 06:59 18:59 Intake Total 700 120 Balance 700 120 Weight (lbs) 116.29 kg 113.03 kg Intake: Oral 700 120 Other: # Voids 2 # Bowel Movements 1 2 Active Medications: Current Medications Acetaminophen (Tylenol) 650 mg PO BID [facility] Stop: 01/20/17 08:59 Last Admin: 11/21/16 17:09 Dose: 650 mg Atorvastatin Calcium (Lipitor) 20 mg PO DAILY [facility] PRN Reason: Protocol Stop: 01/20/17 08:59 Last Admin: 11/21/16 09:45 Dose: 20 mg Carvedilol (Coreg) 6.25 mg PO BID [facility] Stop: 01/20/17 08:59 Last Admin: 11/21/16 17:08 Dose: 6.25 mg Diphenhydramine HCl (Benadryl) 50 mg PO BID PRN PRN Reason: Itching Stop: 01/21/17 08:45 Docusate Sodium (Colace) 100 mg PO BID [facility] Stop: 01/20/17 08:59 Last Admin: 11/21/16 17:08 Dose: 100 mg Famotidine (Pepcid) 20 mg PO DAILY [facility] Stop: 01/20/17 08:59 Last Admin: 11/21/16 09:47 Dose: 20 mg Furosemide (Lasix) 40 mg PO DAILY [facility] Stop: 01/20/17 08:59 Last Admin: 11/21/16 09:47 Dose: 40 mg Insulin Aspart (Novolog Insulin Sliding Scale) 0 units SUBQ Q6HR [facility] PRN Reason: Protocol Stop: 01/20/17 08:29 Last Admin: 11/22/16 05:26 Dose: Not Given Lactulose (Cephulac) 20 gm PO TID [facility] Stop: 01/19/17 23:55 Last Admin: 11/21/16 21:02 Dose: 20 gm Miscellaneous (Vte Chemical Prophylaxis Screen/ Admission) 1 ea [facility] PRN PRN PRN Reason: PROTOCOL Stop: 01/20/17 15:38 Mupirocin (Bactroban Oint) 1 appl NS BID [facility] Stop: 11/26/16 17:01 Rifaximin (Xifaxan) 500 mg PO BID [facility] Stop: 01/20/17 08:59 Last Admin: 11/21/16 17:08 Dose: 500 mg Tamsulosin HCl (Flomax) 0.4 mg PO DAILY [facility] Stop: 01/20/17 08:59 Last Admin: 11/21/16 09:45 Dose: 0.4 mg Tramadol HCl (Ultram) 50 mg PO Q4HR PRN PRN Reason: Pain (Moderate) Stop: 01/20/17 21:29 Last Admin: 11/21/16 21:46 Dose: 50 mg General: Alert, Oriented x3, Cooperative, No acute distress HEENT: Atraumatic Neck: Supple Cardiovascular: Regular rate Lungs: Clear to auscultation Abdomen: Bowel sounds, Soft, Obese Extremities: Other (No edema) Neurological: Other (Unstable gait) Skin: Other (Lower extremities sking is dry and dark.) Psych/Mental Status: Mental status NL - Procedures Procedures: Procedures Procedure Code Date PERFORMANCE OF URINARY FILTRATION, MULTIPLE [id number] 04/13/16 Assessment/Plan - Assessment Assessment: Patient is awake, alert, calm less hands tremor, in no acute distress. Ammonia improving. Dx: Hepatic encephalopaty, ESRD on HD, A-fib, DM, HTN, CHF, Anemia, Thrombocytopenia. - Plan Plan: Patient is in lactulose, rifamixin, Insulin sliding scale, continue with SNF meds. Already seen by Nephro, Cardio, GI, recommendations will be follow.
[2016-11-22] MEDS: Atorvastatin Calcium 10 MG TAB PO SCH (09:33)
[2016-11-22] MEDS: Lactulose 10 Gm/15 mL 30mL UDC PO SCH ×3 (09:35→20:41)
[2016-11-22 10:14] LABS: HEP B CORE IGM Negative (Negative); HEP C ANTIBODY <0.1 s/co ratio (0.0-0.9)
--- NOTE | 2016-11-22 11:27 | Diagnostic Imaging Report ---
Ultrasound abdomen HISTORY: Elevated bilirubin COMPARISON: None Technique: Sonography of the abdomen was performed in multiple planes. FINDINGS: The liver demonstrates normal echogenicity with no evidence of focal lesions. The liver measures 15.5 cm. No exam is limited due to body habitus and bowel gas. The right pleural effusion is noted. The liver demonstrates normal echogenicity measures 22.3 cm. No evidence of focal lesions. Distended gallbladder is seen with large gallstone measuring 2.8 cm.. The gallbladder wall measures 7 mm. The CBD measures 5 mm. Evaluation of pancreas is limited due to bowel gas. The right kidney measures 10.1 cm. The left kidney measures 9.0 cm. There is increased echogenicity of the kidneys. There is fullness of the left renal collecting system without viji hydronephrosis. No obvious focal lesions. The spleen measures 13.3 cm. Mild ascites is noted. IMPRESSION: Limited exam due to body habitus and bowel gas. Mild abdominal ascites Large gallstone. Thickened gallbladder wall is noted which is nonspecific and may be due to patient's ascites. Please correlate clinically. If indicated a nuclear medicine HIDA scan may be obtained for further assessment Hepatomegaly with liver measuring 22.2 cm Mild splenomegaly. Increased echogenicity kidneys which may be due to underlying medical renal disease. Nonspecific fullness of the left renal collecting system without viji hydronephrosis. Right pleural effusion noted.
[2016-11-22 13:39] LABS: URINE BILIRUBIN NEGATIVE (NEGATIVE); URINE BLOOD SMALL (NEGATIVE); URINE GLUCOSE (UA) NEGATIVE (NEGATIVE); URINE KETONE NEGATIVE (NEGATIVE); URINE PROTEIN >=300 mg/dL (NEGATIVE); URINE UROBILINOGEN 0.2 E.U./dL (0.2 - 1.0)
[2016-11-22 13:40] LABS: URINE COLOR YELLOW
[2016-11-22 13:44] LABS: URINE EPITHELIAL CELLS MODERATE /lpf (FEW)
[2016-11-22 13:47] LABS: URINE BACTERIA 2+ /hpf (NONE SEEN)
--- NOTE | 2016-11-22 14:28 | GI Progress Note ---
Subjective - Review of Systems Subjective: MORE AWAKE Objective - Results Result Diagrams: 11/22/16 04:41 11/22/16 04:41 Recent Labs: Laboratory Last Values WBC 5.5 Th/cmm (4.8-10.8) 11/22/16 04:41 RBC 3.88 Mil/cmm (3.80-5.80) 11/22/16 04:41 Hgb 11.3 gm/dL (12-16) L 11/22/16 04:41 Hct 33.9 % (41.0-60) L 11/22/16 04:41 MCV 87.3 fl (80-99) 11/22/16 04:41 MCH 29.1 pg (27.0-31.0) 11/22/16 04:41 MCHC Differential 33.4 pg (28.0-36.0) 11/22/16 04:41 RDW 16.7 % (11.5-20.0) 11/22/16 04:41 Plt Count 101 Th/cmm (150-400) L 11/22/16 04:41 MPV 8.7 fl 11/22/16 04:41 Neutrophils % 72.8 % (40.0-80.0) 11/22/16 04:41 Lymphocytes % 16.2 % (20.0-50.0) L 11/22/16 04:41 Monocytes % 8.0 % (2.0-10.0) 11/22/16 04:41 Eosinophils % 2.8 % (0.0-5.0) 11/22/16 04:41 Basophils % 0.2 % (0.0-2.0) 11/22/16 04:41 PT 12.1 SECONDS (9.5-11.5) H 11/20/16 18:10 INR 1.15 (0.5-1.4) 11/20/16 18:10 PTT (Actin FS) 26.5 SECONDS (26.0-38.0) 11/20/16 18:10 Sodium 137 mEq/L (136-145) 11/22/16 04:41 Potassium 4.1 mEq/L (3.5-5.1) 11/22/16 04:41 Chloride 98 mEq/L (98-107) 11/22/16 04:41 Carbon Dioxide 30.0 mEq/L (21.0-31.0) 11/22/16 04:41 Anion Gap 13.1 (7.0-16.0) 11/22/16 04:41 BUN 35 mg/dL (7-25) H 11/22/16 04:41 Creatinine 4.7 mg/dL (0.7-1.3) H* 11/22/16 04:41 Est GFR ( Amer) TNP 11/22/16 04:41 Est GFR (Non-Af Amer) TNP 11/22/16 04:41 BUN/Creatinine Ratio 7.4 11/22/16 04:41 Glucose 90 mg/dL (70-105) 11/22/16 04:41 POC Glucose 143 MG/DL (70 - 105) H 11/22/16 11:44 Whole Bld Lactic Acid 0.77 mmol/L (0.60-1.99) 11/20/16 18:10 Calcium 8.7 mg/dL (8.6-10.3) 11/22/16 04:41 Total Bilirubin 1.5 mg/dL (0.3-1.0) H 11/22/16 04:41 AST 19 U/L (13-39) 11/22/16 04:41 ALT 15 U/L (7-52) 11/22/16 04:41 Alkaline Phosphatase 303 U/L (34-104) H 11/22/16 04:41 Ammonia 57 umol/L (16-53) H 11/22/16 04:41 B-Natriuretic Peptide 676.0 pg/mL (5.0-100.0) H 11/22/16 04:41 Total Protein 6.7 gm/dL (6.0-8.3) 11/22/16 04:41 Albumin 3.8 gm/dL (4.2-5.5) L 11/22/16 04:41 Globulin 2.9 gm/dL 11/22/16 04:41 Albumin/Globulin Ratio 1.3 (1.0-1.8) 11/22/16 04:41 Lipase 37 U/L (11-82) 11/20/16 18:10 TSH 3.75 uIU/ml (0.34-5.60) 11/21/16 05:20 Urine Source CLEAN C 11/22/16 13:00 Urine Color YELLOW 11/22/16 13:00 Urine Clarity HAZY (CLEAR) 11/22/16 13:00 Urine pH 7.0 (4.6 - 8.0) 11/22/16 13:00 Ur Specific [place] 1.020 (1.005-1.030) 11/22/16 13:00 Urine Protein >=300 mg/dL (NEGATIVE) 11/22/16 13:00 Urine Glucose (UA) NEGATIVE mg/dL (NEGATIVE) 11/22/16 13:00 Urine Ketones NEGATIVE mg/dL (NEGATIVE) 11/22/16 13:00 Urine Blood SMALL (NEGATIVE) H 11/22/16 13:00 Urine Nitrate NEGATIVE (NEGATIVE) 11/22/16 13:00 Urine Bilirubin NEGATIVE (NEGATIVE) 11/22/16 13:00 Urine Urobilinogen 0.2 E.U./dL (0.2 - 1.0) 11/22/16 13:00 Ur Leukocyte Esterase MODERATE (NEGATIVE) H 11/22/16 13:00 Urine RBC 5-10 /hpf (0-5) H 11/22/16 13:00 Urine WBC 10-25 /hpf (0-5) H 11/22/16 13:00 Ur Epithelial Cells MODERATE /lpf (FEW) 11/22/16 13:00 Urine Bacteria 2+ /hpf (NONE SEEN) H 11/22/16 13:00 Digoxin 0.2 ng/ml (0.8-2.0) L 11/20/16 18:10 Hepatitis A IgM Ab Negative (Negative) 11/21/16 05:20 Hep Bs Antigen Negative (Negative) 11/21/16 05:20 Hep B Core IgM Ab Negative (Negative) 11/21/16 05:20 Hepatitis C Antibody <0.1 s/co ratio (0.0-0.9) 11/21/16 05:20 - Physical Exam Vitals and I&O: Vital Signs Temp 97.6 F 11/22/16 08:00 Pulse 69 11/22/16 09:34 Resp 20 11/22/16 08:00 BP 124/69 11/22/16 09:34 Pulse Ox 94 11/22/16 08:00 Intake & Output 11/21/16 11/22/16 11/22/16 18:59 06:59 18:59 Intake Total 700 120 Balance 700 120 Weight (lbs) 116.29 kg 113.03 kg Intake: Oral 700 120 Other: # Voids 2 # Bowel Movements 1 2 Active Medications: Current Medications Acetaminophen (Tylenol) 650 mg PO BID [facility] Stop: 01/20/17 08:59 Last Admin: 11/22/16 09:34 Dose: 650 mg Atorvastatin Calcium (Lipitor) 20 mg PO DAILY [facility] PRN Reason: Protocol Stop: 01/20/17 08:59 Last Admin: 11/22/16 09:33 Dose: 20 mg Carvedilol (Coreg) 6.25 mg PO BID [facility] Stop: 01/20/17 08:59 Last Admin: 11/22/16 09:34 Dose: 6.25 mg Diphenhydramine HCl (Benadryl) 50 mg PO BID PRN PRN Reason: Itching Stop: 01/21/17 08:45 Docusate Sodium (Colace) 100 mg PO BID [facility] Stop: 01/20/17 08:59 Last Admin: 11/22/16 09:33 Dose: 100 mg Famotidine (Pepcid) 20 mg PO DAILY [facility] Stop: 01/20/17 08:59 Last Admin: 11/22/16 09:33 Dose: 20 mg Furosemide (Lasix) 40 mg PO DAILY [facility] Stop: 01/20/17 08:59 Last Admin: 11/22/16 09:33 Dose: 40 mg Insulin Aspart (Novolog Insulin Sliding Scale) 0 units SUBQ Q6HR [facility] PRN Reason: Protocol Stop: 01/20/17 08:29 Last Admin: 11/22/16 12:38 Dose: Not Given Lactulose (Cephulac) 20 gm PO TID [facility] Stop: 01/19/17 23:55 Last Admin: 11/22/16 13:13 Dose: 20 gm Miscellaneous (Vte Chemical Prophylaxis Screen/ Admission) 1 ea [facility] PRN PRN PRN Reason: PROTOCOL Stop: 01/20/17 15:38 Mupirocin (Bactroban Oint) 1 appl NS BID [facility] Stop: 11/26/16 17:01 Last Admin: 11/22/16 12:38 Dose: Not Given Rifaximin (Xifaxan) 500 mg PO BID [facility] Stop: 01/20/17 08:59 Last Admin: 11/22/16 09:32 Dose: 500 mg Tamsulosin HCl (Flomax) 0.4 mg PO DAILY [facility] Stop: 01/20/17 08:59 Last Admin: 11/22/16 09:32 Dose: 0.4 mg Tramadol HCl (Ultram) 50 mg PO Q4HR PRN PRN Reason: Pain (Moderate) Stop: 01/20/17 21:29 Last Admin: 11/21/16 21:46 Dose: 50 mg General: Alert, Oriented x3, Cooperative, No acute distress HEENT: Atraumatic Neck: Supple Cardiovascular: Regular rate Lungs: Clear to auscultation Abdomen: Bowel sounds, Soft, Obese Extremities: Other (No edema) Neurological: Other (Unstable gait) Skin: Other (Lower extremities sking is dry and dark.) Psych/Mental Status: Mental status NL - Procedures Procedures: Procedures Procedure Code Date PERFORMANCE OF URINARY FILTRATION, MULTIPLE 4R5Z69J 04/13/16 Assessment/Plan - Assessment Assessment: 76 YO MALE WITH CIRRHOSIS LIKELY FROM PRIOR ETOH ARON SHOWED MILD ASCITES AND GALLSTONE AMMONIA IS ELEVATED AND PT HAS HEP ENCEPHALOPATHY 1.CHECK HIDA 2.CONT LACTULOSE AND XIFAXAN 3.AWAIT AFP 4.WILL NEED OUTPATIENT HEPATOLOGY MANAGEMENT OF CIRRHOSIS
[2016-11-23] MEDS: INSULIN ASPART SLIDING SCALE 100 UNITS/ML UNIT SUBQ SCH ×4 (00:58→17:14)
[2016-11-23 06:16] LABS: % BASOPHILS 0.1 % (0.0-2.0); % EOSINOPHILS 3.6 % (0.0-5.0); % LYMPHOCYTES 19.4 % (20.0-50.0); % MONOCYTES 9.6 % (2.0-10.0); % NEUTROPHILS 67.3 % (40.0-80.0); HEMATOCRIT 36.8 % (41.0-60); HEMOGLOBIN 11.7 gm/dL (12-16); MEAN CORPUSCULAR HEMOGLOBIN 28.4 pg (27.0-31.0); MEAN CORPUSCULAR HGB CONC 31.9 pg (28.0-36.0); NEUTROPHILE ABSOLUTE 3.2 Th/cmm (1.8-8.0); PLATELET COUNT 99 Th/cmm (150-400); RED BLOOD COUNT 4.13 Mil/cmm (3.80-5.80); WHITE BLOOD COUNT 4.8 Th/cmm (4.8-10.8)
[2016-11-23 06:32] LABS: ALB/GLOB RATIO 1.3 (1.0-1.8); ALKALINE PHOSPHATASE 321 U/L (34-104); ANION GAP 14.2 (7.0-16.0); BILIRUBIN,TOTAL 1.4 mg/dL (0.3-1.0); BUN - UREA NITROGEN 42 mg/dL (7-25); CALCIUM SERUM 8.6 mg/dL (8.6-10.3); CARBON DIOXIDE 30.3 mEq/L (21.0-31.0); CHLORIDE 97 mEq/L (98-107); GLUCOSE 112 mg/dL (70-105); MAGNESIUM 2.3 mg/dL (1.9-2.7); PHOSPHOROUS 7.6 mg/dL (2.5-5.0); POTASSIUM SERUM 4.5 mEq/L (3.5-5.1); SGOT 22 U/L (13-39); SGPT/ALT 18 U/L (7-52); SODIUM SERUM 137 mEq/L (136-145)
[2016-11-23 06:50] LABS: BUN/CREATININE RATIO 7.1
[2016-11-23 06:52] LABS: CREATININE - SERUM 5.9 mg/dL (0.7-1.3)
--- NOTE | 2016-11-23 08:44 | General Progress Note ---
Subjective - Review of Systems Service Date: 11/23/16 Subjective: I am better Objective - Results Result Diagrams: 11/23/16 05:40 11/23/16 05:40 Recent Labs: Laboratory Last Values WBC 4.8 Th/cmm (4.8-10.8) 11/23/16 05:40 RBC 4.13 Mil/cmm (3.80-5.80) 11/23/16 05:40 Hgb 11.7 gm/dL (12-16) L 11/23/16 05:40 Hct 36.8 % (41.0-60) L 11/23/16 05:40 MCV 89.0 fl (80-99) 11/23/16 05:40 MCH 28.4 pg (27.0-31.0) 11/23/16 05:40 MCHC Differential 31.9 pg (28.0-36.0) 11/23/16 05:40 RDW 17.0 % (11.5-20.0) 11/23/16 05:40 Plt Count 99 Th/cmm (150-400) L 11/23/16 05:40 MPV 9.0 fl 11/23/16 05:40 Neutrophils % 67.3 % (40.0-80.0) 11/23/16 05:40 Lymphocytes % 19.4 % (20.0-50.0) L 11/23/16 05:40 Monocytes % 9.6 % (2.0-10.0) 11/23/16 05:40 Eosinophils % 3.6 % (0.0-5.0) 11/23/16 05:40 Basophils % 0.1 % (0.0-2.0) 11/23/16 05:40 PT 12.1 SECONDS (9.5-11.5) H 11/20/16 18:10 INR 1.15 (0.5-1.4) 11/20/16 18:10 PTT (Actin FS) 26.5 SECONDS (26.0-38.0) 11/20/16 18:10 Sodium 137 mEq/L (136-145) 11/23/16 05:40 Potassium 4.5 mEq/L (3.5-5.1) 11/23/16 05:40 Chloride 97 mEq/L (98-107) L 11/23/16 05:40 Carbon Dioxide 30.3 mEq/L (21.0-31.0) 11/23/16 05:40 Anion Gap 14.2 (7.0-16.0) 11/23/16 05:40 BUN 42 mg/dL (7-25) H 11/23/16 05:40 Creatinine 5.9 mg/dL (0.7-1.3) H* 11/23/16 05:40 Est GFR ( Amer) TNP 11/23/16 05:40 Est GFR (Non-Af Amer) TNP 11/23/16 05:40 BUN/Creatinine Ratio 7.1 11/23/16 05:40 Glucose 112 mg/dL (70-105) H 11/23/16 05:40 POC Glucose 111 MG/DL (70 - 105) H 11/23/16 05:22 Whole Bld Lactic Acid 0.77 mmol/L (0.60-1.99) 11/20/16 18:10 Calcium 8.6 mg/dL (8.6-10.3) 11/23/16 05:40 Phosphorus 7.6 mg/dL (2.5-5.0) H 11/23/16 05:40 Magnesium 2.3 mg/dL (1.9-2.7) 11/23/16 05:40 Total Bilirubin 1.4 mg/dL (0.3-1.0) H 11/23/16 05:40 AST 22 U/L (13-39) 11/23/16 05:40 ALT 18 U/L (7-52) 11/23/16 05:40 Alkaline Phosphatase 321 U/L (34-104) H 11/23/16 05:40 Ammonia 49 umol/L (16-53) 11/23/16 05:40 B-Natriuretic Peptide 676.0 pg/mL (5.0-100.0) H 11/22/16 04:41 Total Protein 6.9 gm/dL (6.0-8.3) 11/23/16 05:40 Albumin 3.9 gm/dL (4.2-5.5) L 11/23/16 05:40 Globulin 3.0 gm/dL 11/23/16 05:40 Albumin/Globulin Ratio 1.3 (1.0-1.8) 11/23/16 05:40 Lipase 37 U/L (11-82) 11/20/16 18:10 Tumor Marker AFP 1.3 ng/mL (0.0-8.3) 11/21/16 05:20 TSH 3.75 uIU/ml (0.34-5.60) 11/21/16 05:20 Urine Source CLEAN C 11/22/16 13:00 Urine Color YELLOW 11/22/16 13:00 Urine Clarity HAZY (CLEAR) 11/22/16 13:00 Urine pH 7.0 (4.6 - 8.0) 11/22/16 13:00 Ur Specific [place] 1.020 (1.005-1.030) 11/22/16 13:00 Urine Protein >=300 mg/dL (NEGATIVE) 11/22/16 13:00 Urine Glucose (UA) NEGATIVE mg/dL (NEGATIVE) 11/22/16 13:00 Urine Ketones NEGATIVE mg/dL (NEGATIVE) 11/22/16 13:00 Urine Blood SMALL (NEGATIVE) H 11/22/16 13:00 Urine Nitrate NEGATIVE (NEGATIVE) 11/22/16 13:00 Urine Bilirubin NEGATIVE (NEGATIVE) 11/22/16 13:00 Urine Urobilinogen 0.2 E.U./dL (0.2 - 1.0) 11/22/16 13:00 Ur Leukocyte Esterase MODERATE (NEGATIVE) H 11/22/16 13:00 Urine RBC 5-10 /hpf (0-5) H 11/22/16 13:00 Urine WBC 10-25 /hpf (0-5) H 11/22/16 13:00 Ur Epithelial Cells MODERATE /lpf (FEW) 11/22/16 13:00 Urine Bacteria 2+ /hpf (NONE SEEN) H 11/22/16 13:00 Digoxin 0.2 ng/ml (0.8-2.0) L 11/20/16 18:10 Hepatitis A IgM Ab Negative (Negative) 11/21/16 05:20 Hep Bs Antigen Negative (Negative) 11/21/16 05:20 Hep B Core IgM Ab Negative (Negative) 11/21/16 05:20 Hepatitis C Antibody <0.1 s/co ratio (0.0-0.9) 11/21/16 05:20 - Physical Exam Vitals and I&O: Vital Signs Temp 98.0 F 11/23/16 04:00 Pulse 73 11/23/16 04:00 Resp 20 11/23/16 07:55 BP 126/78 11/23/16 04:00 Pulse Ox 98 11/23/16 04:00 Intake & Output 11/22/16 11/23/16 11/23/16 18:59 06:59 18:59 Intake Total 1440 Balance 1440 Weight (lbs) 114.215 kg Intake: Oral 1440 Other: # Voids 2 # Bowel Movements 1 Active Medications: Current Medications Acetaminophen (Tylenol) 650 mg PO BID [facility] Stop: 01/20/17 08:59 Last Admin: 11/22/16 17:25 Dose: 650 mg Atorvastatin Calcium (Lipitor) 20 mg PO DAILY [facility] PRN Reason: Protocol Stop: 01/20/17 08:59 Last Admin: 11/22/16 09:33 Dose: 20 mg Carvedilol (Coreg) 6.25 mg PO BID [facility] Stop: 01/20/17 08:59 Last Admin: 11/22/16 17:24 Dose: 6.25 mg Diphenhydramine HCl (Benadryl) 50 mg PO BID PRN PRN Reason: Itching Stop: 01/21/17 08:45 Docusate Sodium (Colace) 100 mg PO BID [facility] Stop: 01/20/17 08:59 Last Admin: 11/22/16 17:24 Dose: 100 mg Doxycycline Hyclate (Vibramycin) 100 mg PO BID [facility] Stop: 01/21/17 16:59 Last Admin: 11/22/16 17:24 Dose: 100 mg Famotidine (Pepcid) 20 mg PO DAILY [facility] Stop: 01/20/17 08:59 Last Admin: 11/22/16 09:33 Dose: 20 mg Furosemide (Lasix) 40 mg PO DAILY [facility] Stop: 01/20/17 08:59 Last Admin: 11/22/16 09:33 Dose: 40 mg Insulin Aspart (Novolog Insulin Sliding Scale) 0 units SUBQ Q6HR [facility] PRN Reason: Protocol Stop: 01/20/17 08:29 Last Admin: 11/23/16 05:33 Dose: Not Given Lactulose (Cephulac) 20 gm PO TID [facility] Stop: 01/19/17 23:55 Last Admin: 11/22/16 20:41 Dose: 20 gm Miscellaneous (Vte Chemical Prophylaxis Screen/ Admission) 1 ea [facility] PRN PRN PRN Reason: PROTOCOL Stop: 01/20/17 15:38 Mupirocin (Bactroban Oint) 1 appl NS BID [facility] Stop: 11/26/16 17:01 Last Admin: 11/22/16 17:25 Dose: 1 appl Rifaximin (Xifaxan) 500 mg PO BID [facility] Stop: 01/20/17 08:59 Last Admin: 11/22/16 17:23 Dose: 500 mg Tamsulosin HCl (Flomax) 0.4 mg PO DAILY [facility] Stop: 01/20/17 08:59 Last Admin: 11/22/16 09:32 Dose: 0.4 mg Tramadol HCl (Ultram) 50 mg PO Q4HR PRN PRN Reason: Pain (Moderate) Stop: 01/20/17 21:29 Last Admin: 11/22/16 20:41 Dose: 50 mg General: Alert, Oriented x3, Cooperative, No acute distress HEENT: Atraumatic Neck: Supple Cardiovascular: Regular rate Lungs: Clear to auscultation Abdomen: Bowel sounds, Soft, Obese Extremities: Other (No edema) Neurological: Other (Unstable gait) Skin: Other (Lower extremities sking is dry and dark.) Psych/Mental Status: Mental status NL - Procedures Procedures: Procedures Procedure Code Date PERFORMANCE OF URINARY FILTRATION, MULTIPLE [id number] 04/13/16 Assessment/Plan - Assessment Assessment: Patient is awake, alert, calm, Ammonia level normal. Dx: Hepatic encephalopaty, ESRD on HD, A-fib, DM, HTN, CHF, Anemia, Thrombocytopenia. - Plan Plan: Patient is in lactulose, rifamixin, Insulin sliding scale, continue with SNF meds. Patient is DC to SNF.
--- NOTE | 2016-11-23 08:54 | GI Progress Note ---
Subjective - Review of Systems Subjective: DENIES ABD PAIN Objective - Results Result Diagrams: 11/23/16 05:40 11/23/16 05:40 Recent Labs: Laboratory Last Values WBC 4.8 Th/cmm (4.8-10.8) 11/23/16 05:40 RBC 4.13 Mil/cmm (3.80-5.80) 11/23/16 05:40 Hgb 11.7 gm/dL (12-16) L 11/23/16 05:40 Hct 36.8 % (41.0-60) L 11/23/16 05:40 MCV 89.0 fl (80-99) 11/23/16 05:40 MCH 28.4 pg (27.0-31.0) 11/23/16 05:40 MCHC Differential 31.9 pg (28.0-36.0) 11/23/16 05:40 RDW 17.0 % (11.5-20.0) 11/23/16 05:40 Plt Count 99 Th/cmm (150-400) L 11/23/16 05:40 MPV 9.0 fl 11/23/16 05:40 Neutrophils % 67.3 % (40.0-80.0) 11/23/16 05:40 Lymphocytes % 19.4 % (20.0-50.0) L 11/23/16 05:40 Monocytes % 9.6 % (2.0-10.0) 11/23/16 05:40 Eosinophils % 3.6 % (0.0-5.0) 11/23/16 05:40 Basophils % 0.1 % (0.0-2.0) 11/23/16 05:40 PT 12.1 SECONDS (9.5-11.5) H 11/20/16 18:10 INR 1.15 (0.5-1.4) 11/20/16 18:10 PTT (Actin FS) 26.5 SECONDS (26.0-38.0) 11/20/16 18:10 Sodium 137 mEq/L (136-145) 11/23/16 05:40 Potassium 4.5 mEq/L (3.5-5.1) 11/23/16 05:40 Chloride 97 mEq/L (98-107) L 11/23/16 05:40 Carbon Dioxide 30.3 mEq/L (21.0-31.0) 11/23/16 05:40 Anion Gap 14.2 (7.0-16.0) 11/23/16 05:40 BUN 42 mg/dL (7-25) H 11/23/16 05:40 Creatinine 5.9 mg/dL (0.7-1.3) H* 11/23/16 05:40 Est GFR ( Amer) TNP 11/23/16 05:40 Est GFR (Non-Af Amer) TNP 11/23/16 05:40 BUN/Creatinine Ratio 7.1 11/23/16 05:40 Glucose 112 mg/dL (70-105) H 11/23/16 05:40 POC Glucose 111 MG/DL (70 - 105) H 11/23/16 05:22 Whole Bld Lactic Acid 0.77 mmol/L (0.60-1.99) 11/20/16 18:10 Calcium 8.6 mg/dL (8.6-10.3) 11/23/16 05:40 Phosphorus 7.6 mg/dL (2.5-5.0) H 11/23/16 05:40 Magnesium 2.3 mg/dL (1.9-2.7) 11/23/16 05:40 Total Bilirubin 1.4 mg/dL (0.3-1.0) H 11/23/16 05:40 AST 22 U/L (13-39) 11/23/16 05:40 ALT 18 U/L (7-52) 11/23/16 05:40 Alkaline Phosphatase 321 U/L (34-104) H 11/23/16 05:40 Ammonia 49 umol/L (16-53) 11/23/16 05:40 B-Natriuretic Peptide 676.0 pg/mL (5.0-100.0) H 11/22/16 04:41 Total Protein 6.9 gm/dL (6.0-8.3) 11/23/16 05:40 Albumin 3.9 gm/dL (4.2-5.5) L 11/23/16 05:40 Globulin 3.0 gm/dL 11/23/16 05:40 Albumin/Globulin Ratio 1.3 (1.0-1.8) 11/23/16 05:40 Lipase 37 U/L (11-82) 11/20/16 18:10 Tumor Marker AFP 1.3 ng/mL (0.0-8.3) 11/21/16 05:20 TSH 3.75 uIU/ml (0.34-5.60) 11/21/16 05:20 Urine Source CLEAN C 11/22/16 13:00 Urine Color YELLOW 11/22/16 13:00 Urine Clarity HAZY (CLEAR) 11/22/16 13:00 Urine pH 7.0 (4.6 - 8.0) 11/22/16 13:00 Ur Specific [place] 1.020 (1.005-1.030) 11/22/16 13:00 Urine Protein >=300 mg/dL (NEGATIVE) 11/22/16 13:00 Urine Glucose (UA) NEGATIVE mg/dL (NEGATIVE) 11/22/16 13:00 Urine Ketones NEGATIVE mg/dL (NEGATIVE) 11/22/16 13:00 Urine Blood SMALL (NEGATIVE) H 11/22/16 13:00 Urine Nitrate NEGATIVE (NEGATIVE) 11/22/16 13:00 Urine Bilirubin NEGATIVE (NEGATIVE) 11/22/16 13:00 Urine Urobilinogen 0.2 E.U./dL (0.2 - 1.0) 11/22/16 13:00 Ur Leukocyte Esterase MODERATE (NEGATIVE) H 11/22/16 13:00 Urine RBC 5-10 /hpf (0-5) H 11/22/16 13:00 Urine WBC 10-25 /hpf (0-5) H 11/22/16 13:00 Ur Epithelial Cells MODERATE /lpf (FEW) 11/22/16 13:00 Urine Bacteria 2+ /hpf (NONE SEEN) H 11/22/16 13:00 Digoxin 0.2 ng/ml (0.8-2.0) L 11/20/16 18:10 Hepatitis A IgM Ab Negative (Negative) 11/21/16 05:20 Hep Bs Antigen Negative (Negative) 11/21/16 05:20 Hep B Core IgM Ab Negative (Negative) 11/21/16 05:20 Hepatitis C Antibody <0.1 s/co ratio (0.0-0.9) 11/21/16 05:20 - Physical Exam Vitals and I&O: Vital Signs Temp 98.0 F 11/23/16 04:00 Pulse 73 11/23/16 04:00 Resp 20 11/23/16 07:55 BP 126/78 11/23/16 04:00 Pulse Ox 98 11/23/16 04:00 Intake & Output 11/22/16 11/23/16 11/23/16 18:59 06:59 18:59 Intake Total 1440 Balance 1440 Weight (lbs) 114.215 kg Intake: Oral 1440 Other: # Voids 2 # Bowel Movements 1 Active Medications: Current Medications Acetaminophen (Tylenol) 650 mg PO BID [facility] Stop: 01/20/17 08:59 Last Admin: 11/22/16 17:25 Dose: 650 mg Atorvastatin Calcium (Lipitor) 20 mg PO DAILY [facility] PRN Reason: Protocol Stop: 01/20/17 08:59 Last Admin: 11/22/16 09:33 Dose: 20 mg Carvedilol (Coreg) 6.25 mg PO BID [facility] Stop: 01/20/17 08:59 Last Admin: 11/22/16 17:24 Dose: 6.25 mg Diphenhydramine HCl (Benadryl) 50 mg PO BID PRN PRN Reason: Itching Stop: 01/21/17 08:45 Docusate Sodium (Colace) 100 mg PO BID [facility] Stop: 01/20/17 08:59 Last Admin: 11/22/16 17:24 Dose: 100 mg Doxycycline Hyclate (Vibramycin) 100 mg PO BID [facility] Stop: 01/21/17 16:59 Last Admin: 11/22/16 17:24 Dose: 100 mg Famotidine (Pepcid) 20 mg PO DAILY [facility] Stop: 01/20/17 08:59 Last Admin: 11/22/16 09:33 Dose: 20 mg Furosemide (Lasix) 40 mg PO DAILY [facility] Stop: 01/20/17 08:59 Last Admin: 11/22/16 09:33 Dose: 40 mg Insulin Aspart (Novolog Insulin Sliding Scale) 0 units SUBQ Q6HR [facility] PRN Reason: Protocol Stop: 01/20/17 08:29 Last Admin: 11/23/16 05:33 Dose: Not Given Lactulose (Cephulac) 20 gm PO TID [facility] Stop: 01/19/17 23:55 Last Admin: 11/22/16 20:41 Dose: 20 gm Miscellaneous (Vte Chemical Prophylaxis Screen/ Admission) 1 ea [facility] PRN PRN PRN Reason: PROTOCOL Stop: 01/20/17 15:38 Mupirocin (Bactroban Oint) 1 appl NS BID [facility] Stop: 11/26/16 17:01 Last Admin: 11/22/16 17:25 Dose: 1 appl Rifaximin (Xifaxan) 500 mg PO BID [facility] Stop: 01/20/17 08:59 Last Admin: 11/22/16 17:23 Dose: 500 mg Tamsulosin HCl (Flomax) 0.4 mg PO DAILY [facility] Stop: 01/20/17 08:59 Last Admin: 11/22/16 09:32 Dose: 0.4 mg Tramadol HCl (Ultram) 50 mg PO Q4HR PRN PRN Reason: Pain (Moderate) Stop: 01/20/17 21:29 Last Admin: 11/22/16 20:41 Dose: 50 mg General: Alert, Oriented x3, Cooperative, No acute distress HEENT: Atraumatic Neck: Supple Cardiovascular: Regular rate Lungs: Clear to auscultation Abdomen: Bowel sounds, Soft, Obese Extremities: Other (No edema) Neurological: Other (Unstable gait) Skin: Other (Lower extremities sking is dry and dark.) Psych/Mental Status: Mental status NL - Procedures Procedures: Procedures Procedure Code Date PERFORMANCE OF URINARY FILTRATION, MULTIPLE [id number] 04/13/16 Assessment/Plan - Assessment Assessment: 76 YO MALE WITH CIRRHOSIS LIKELY FROM PRIOR ETOH ARON SHOWED MILD ASCITES AND GALLSTONE AMMONIA IS ELEVATED AND PT HAS HEP ENCEPHALOPATHY BUT IMPROVED AFP NORMAL 1.CHECK HIDA 2.CONT LACTULOSE AND XIFAXAN 3.WILL NEED OUTPATIENT HEPATOLOGY MANAGEMENT OF CIRRHOSIS; D/W HOSPITALIST
[2016-11-23] MEDS: Atorvastatin Calcium 10 MG TAB PO SCH (09:50)
[2016-11-23] MEDS: Lactulose 10 Gm/15 mL 30mL UDC PO SCH ×2 (09:51→13:09)
--- NOTE | 2016-11-23 15:25 | Cardiology ---
11/21/[address] Celaya. M-MODE ECHOCARDIOGRAM: Mitral valve, anterior leaflet of mitral valve shows normal excursion, EF velocity. Posterior leaflet of mitral valve shows normal excursion. Left ventricular posterior wall showed normal thickness excursion. Interventricular septum showed normal thickness excursion. Ejection fraction 50%. Left atrium normal. Aortic root shows normal dimension, normal excursion of aortic leaflets. CONCLUSION: Hypertrophy of the left ventricle, ejection fraction 50%. 2D ECHO: Long axis view showed normal sized left ventricle with hypertrophy of the left ventricle. Left atrium normal. Aortic root shows normal dimension, normal excursion of aortic leaflets. Short axis view of mitral valve normal. Short axis view of aortic valve normal. Apical four chamber view showed normal sized left ventricle, left atrium, right ventricle, right atrium, tricuspid and mitral valve, hypertrophy of the left ventricle. CONCLUSION: Hypertrophy of the left ventricle, ejection fraction 50%. Doppler study shows prominent A wave consistent with poor compliance of left ventricle. Mild mitral regurgitation, mild aortic regurgitation, severe tricuspid regurgitation, right ventricular systolic pressure 64 mmHg with severe pulmonary hypertension. [facility]# [id number]
--- NOTE | 2016-11-23 15:43 | Diagnostic Imaging Report ---
Nuclear medicine HIDA scan HISTORY: Pain, assess for possible cholecystitis COMPARISON: Ultrasound abdomen on 11/22/2016 Technique/procedure: 4.4 mCi of technetium labeled Choletec was administered intravenously and multiple scintigraphic images were obtained for up to 1 hour. FINDINGS: Prompt hepatic uptake is demonstrated. Gallbladder uptake is seen at 30 minutes. Small bowel uptake was seen at 30 minutes. IMPRESSION: No scintigraphic evidence of cholecystitis. Please correlate with clinical findings.
--- NOTE | 2016-11-24 13:10 | Discharge Summary ---
General Discharge Summary - Discharge Summary Date of Admission: 11/20/16 Admitting Diagnosis: Hepatic encuphalopaty, ESRD, A-fib, DM, HTN, CHF. Discharge Date: 11/23/16 Discharge Diagnosis: Hepatic encephalopaty, ESRD, A-fib, DM, HTN, CHF. Laboratory Findings: Laboratory Tests 11/21/16 11/21/16 11/21/16 05:20 05:20 05:20 WBC 5.4 RBC 3.99 Hgb 11.6 L Hct 34.7 L MCV 87.1 MCH 29.0 MCHC Differential 33.3 RDW 17.2 Plt Count 97 L MPV 8.5 Neutrophils % 71.8 Lymphocytes % 16.6 L Monocytes % 8.3 Eosinophils % 3.0 Basophils % 0.3 Sodium 138 Potassium 5.5 H Chloride 99 Carbon Dioxide 28.3 Anion Gap 16.2 H BUN 53 H Creatinine 5.6 H* Est GFR ( Amer) TNP Est GFR (Non-Af Amer) TNP BUN/Creatinine Ratio 9.5 Glucose 90 POC Glucose Calcium 9.0 Phosphorus Magnesium Total Bilirubin 1.6 H AST 18 ALT 14 Alkaline Phosphatase 299 H Ammonia B-Natriuretic Peptide Total Protein 6.6 Albumin 3.8 L Globulin 2.8 Albumin/Globulin Ratio 1.4 Tumor Marker AFP TSH 3.75 Urine Source Urine Color Urine Clarity Urine pH Ur Specific [place] Urine Protein Urine Glucose (UA) Urine Ketones Urine Blood Urine Nitrate Urine Bilirubin Urine Urobilinogen Ur Leukocyte Esterase Urine RBC Urine WBC Ur Epithelial Cells Urine Bacteria Hepatitis A IgM Ab Hep Bs Antigen Hep B Core IgM Ab Hepatitis C Antibody 11/21/16 11/21/16 11/21/16 05:20 05:20 05:20 WBC RBC Hgb Hct MCV MCH MCHC Differential RDW Plt Count MPV Neutrophils % Lymphocytes % Monocytes % Eosinophils % Basophils % Sodium Potassium Chloride Carbon Dioxide Anion Gap BUN Creatinine Est GFR ( Amer) Est GFR (Non-Af Amer) BUN/Creatinine Ratio Glucose POC Glucose Calcium Phosphorus Magnesium Total Bilirubin AST ALT Alkaline Phosphatase Ammonia 81 H B-Natriuretic Peptide Total Protein Albumin Globulin Albumin/Globulin Ratio Tumor Marker AFP 1.3 TSH Urine Source Urine Color Urine Clarity Urine pH Ur Specific [place] Urine Protein Urine Glucose (UA) Urine Ketones Urine Blood Urine Nitrate Urine Bilirubin Urine Urobilinogen Ur Leukocyte Esterase Urine RBC Urine WBC Ur Epithelial Cells Urine Bacteria Hepatitis A IgM Ab Negative Hep Bs Antigen Negative Hep B Core IgM Ab Negative Hepatitis C Antibody <0.1 11/21/16 11/21/16 11/21/16 09:43 12:42 17:11 WBC RBC Hgb Hct MCV MCH MCHC Differential RDW Plt Count MPV Neutrophils % Lymphocytes % Monocytes % Eosinophils % Basophils % Sodium Potassium Chloride Carbon Dioxide Anion Gap BUN Creatinine Est GFR ( Amer) Est GFR (Non-Af Amer) BUN/Creatinine Ratio Glucose POC Glucose 140 H 162 H 140 H Calcium Phosphorus Magnesium Total Bilirubin AST ALT Alkaline Phosphatase Ammonia B-Natriuretic Peptide Total Protein Albumin Globulin Albumin/Globulin Ratio Tumor Marker AFP TSH Urine Source Urine Color Urine Clarity Urine pH Ur Specific [place] Urine Protein Urine Glucose (UA) Urine Ketones Urine Blood Urine Nitrate Urine Bilirubin Urine Urobilinogen Ur Leukocyte Esterase Urine RBC Urine WBC Ur Epithelial Cells Urine Bacteria Hepatitis A IgM Ab Hep Bs Antigen Hep B Core IgM Ab Hepatitis C Antibody 11/22/16 11/22/16 11/22/16 00:46 04:41 04:41 WBC 5.5 RBC 3.88 Hgb 11.3 L Hct 33.9 L MCV 87.3 MCH 29.1 MCHC Differential 33.4 RDW 16.7 Plt Count 101 L MPV 8.7 Neutrophils % 72.8 Lymphocytes % 16.2 L Monocytes % 8.0 Eosinophils % 2.8 Basophils % 0.2 Sodium 137 Potassium 4.1 Chloride 98 Carbon Dioxide 30.0 Anion Gap 13.1 BUN 35 H Creatinine 4.7 H* Est GFR ( Amer) TNP Est GFR (Non-Af Amer) TNP BUN/Creatinine Ratio 7.4 Glucose 90 POC Glucose 155 H Calcium 8.7 Phosphorus Magnesium Total Bilirubin 1.5 H AST 19 ALT 15 Alkaline Phosphatase 303 H Ammonia B-Natriuretic Peptide Total Protein 6.7 Albumin 3.8 L Globulin 2.9 Albumin/Globulin Ratio 1.3 Tumor Marker AFP TSH Urine Source Urine Color Urine Clarity Urine pH Ur Specific [place] Urine Protein Urine Glucose (UA) Urine Ketones Urine Blood Urine Nitrate Urine Bilirubin Urine Urobilinogen Ur Leukocyte Esterase Urine RBC Urine WBC Ur Epithelial Cells Urine Bacteria Hepatitis A IgM Ab Hep Bs Antigen Hep B Core IgM Ab Hepatitis C Antibody 11/22/16 11/22/16 11/22/16 04:41 04:41 05:25 WBC RBC Hgb Hct MCV MCH MCHC Differential RDW Plt Count MPV Neutrophils % Lymphocytes % Monocytes % Eosinophils % Basophils % Sodium Potassium Chloride Carbon Dioxide Anion Gap BUN Creatinine Est GFR ( Amer) Est GFR (Non-Af Amer) BUN/Creatinine Ratio Glucose POC Glucose 80 Calcium Phosphorus Magnesium Total Bilirubin AST ALT Alkaline Phosphatase Ammonia 57 H B-Natriuretic Peptide 676.0 H Total Protein Albumin Globulin Albumin/Globulin Ratio Tumor Marker AFP TSH Urine Source Urine Color Urine Clarity Urine pH Ur Specific [place] Urine Protein Urine Glucose (UA) Urine Ketones Urine Blood Urine Nitrate Urine Bilirubin Urine Urobilinogen Ur Leukocyte Esterase Urine RBC Urine WBC Ur Epithelial Cells Urine Bacteria Hepatitis A IgM Ab Hep Bs Antigen Hep B Core IgM Ab Hepatitis C Antibody 11/22/16 11/22/16 11/22/16 11:44 13:00 16:46 WBC RBC Hgb Hct MCV MCH MCHC Differential RDW Plt Count MPV Neutrophils % Lymphocytes % Monocytes % Eosinophils % Basophils % Sodium Potassium Chloride Carbon Dioxide Anion Gap BUN Creatinine Est GFR ( Amer) Est GFR (Non-Af Amer) BUN/Creatinine Ratio Glucose POC Glucose 143 H 134 H Calcium Phosphorus Magnesium Total Bilirubin AST ALT Alkaline Phosphatase Ammonia B-Natriuretic Peptide Total Protein Albumin Globulin Albumin/Globulin Ratio Tumor Marker AFP TSH Urine Source CLEAN C Urine Color YELLOW Urine Clarity HAZY Urine pH 7.0 Ur Specific [place] 1.020 Urine Protein >=300 Urine Glucose (UA) NEGATIVE Urine Ketones NEGATIVE Urine Blood SMALL H Urine Nitrate NEGATIVE Urine Bilirubin NEGATIVE Urine Urobilinogen 0.2 Ur Leukocyte Esterase MODERATE H Urine RBC 5-10 H Urine WBC 10-25 H Ur Epithelial Cells MODERATE Urine Bacteria 2+ H Hepatitis A IgM Ab Hep Bs Antigen Hep B Core IgM Ab Hepatitis C Antibody 11/22/16 11/23/16 11/23/16 23:08 05:22 05:40 WBC 4.8 RBC 4.13 Hgb 11.7 L Hct 36.8 L MCV 89.0 MCH 28.4 MCHC Differential 31.9 RDW 17.0 Plt Count 99 L MPV 9.0 Neutrophils % 67.3 Lymphocytes % 19.4 L Monocytes % 9.6 Eosinophils % 3.6 Basophils % 0.1 Sodium Potassium Chloride Carbon Dioxide Anion Gap BUN Creatinine Est GFR ( Amer) Est GFR (Non-Af Amer) BUN/Creatinine Ratio Glucose POC Glucose 157 H 111 H Calcium Phosphorus Magnesium Total Bilirubin AST ALT Alkaline Phosphatase Ammonia B-Natriuretic Peptide Total Protein Albumin Globulin Albumin/Globulin Ratio Tumor Marker AFP TSH Urine Source Urine Color Urine Clarity Urine pH Ur Specific [place] Urine Protein Urine Glucose (UA) Urine Ketones Urine Blood Urine Nitrate Urine Bilirubin Urine Urobilinogen Ur Leukocyte Esterase Urine RBC Urine WBC Ur Epithelial Cells Urine Bacteria Hepatitis A IgM Ab Hep Bs Antigen Hep B Core IgM Ab Hepatitis C Antibody 11/23/16 11/23/16 11/23/16 05:40 05:40 11:26 WBC RBC Hgb Hct MCV MCH MCHC Differential RDW Plt Count MPV Neutrophils % Lymphocytes % Monocytes % Eosinophils % Basophils % Sodium 137 Potassium 4.5 Chloride 97 L Carbon Dioxide 30.3 Anion Gap 14.2 BUN 42 H Creatinine 5.9 H* Est GFR ( Amer) TNP Est GFR (Non-Af Amer) TNP BUN/Creatinine Ratio 7.1 Glucose 112 H POC Glucose 129 H Calcium 8.6 Phosphorus 7.6 H Magnesium 2.3 Total Bilirubin 1.4 H AST 22 ALT 18 Alkaline Phosphatase 321 H Ammonia 49 B-Natriuretic Peptide Total Protein 6.9 Albumin 3.9 L Globulin 3.0 Albumin/Globulin Ratio 1.3 Tumor Marker AFP TSH Urine Source Urine Color Urine Clarity Urine pH Ur Specific [place] Urine Protein Urine Glucose (UA) Urine Ketones Urine Blood Urine Nitrate Urine Bilirubin Urine Urobilinogen Ur Leukocyte Esterase Urine RBC Urine WBC Ur Epithelial Cells Urine Bacteria Hepatitis A IgM Ab Hep Bs Antigen Hep B Core IgM Ab Hepatitis C Antibody 11/23/16 16:27 WBC RBC Hgb Hct MCV MCH MCHC Differential RDW Plt Count MPV Neutrophils % Lymphocytes % Monocytes % Eosinophils % Basophils % Sodium Potassium Chloride Carbon Dioxide Anion Gap BUN Creatinine Est GFR ( Amer) Est GFR (Non-Af Amer) BUN/Creatinine Ratio Glucose POC Glucose 105 Calcium Phosphorus Magnesium Total Bilirubin AST ALT Alkaline Phosphatase Ammonia B-Natriuretic Peptide Total Protein Albumin Globulin Albumin/Globulin Ratio Tumor Marker AFP TSH Urine Source Urine Color Urine Clarity Urine pH Ur Specific [place] Urine Protein Urine Glucose (UA) Urine Ketones Urine Blood Urine Nitrate Urine Bilirubin Urine Urobilinogen Ur Leukocyte Esterase Urine RBC Urine WBC Ur Epithelial Cells Urine Bacteria Hepatitis A IgM Ab Hep Bs Antigen Hep B Core IgM Ab Hepatitis C Antibody Hospital Course: Patient was hospitalized to telemetry, he was started in IV NS, Lactulose, Rimifen, and continue with SNF meds, Consults with Nephro, cardio and GI were requested and recommendations were follow. WEith this ammonia came to normal. Treatment: IV NS, lactulose, rifamicin, Consult with Cardio, nephro and GI were done and recommendations were follow. Disposition: [facility] - [facility] Home Medications: Home Medication Medication Instructions Recorded Type Atorvastatin Calcium [Lipitor] 20 mg PO DAILY #0 tab 01/02/16 Rx Insulin Aspart Sliding Scale See Protocol SUBQ ACHS #0 unit 01/02/16 Rx [NovoLOG INSULIN SLIDING SCALE] Nortriptyline [Pamelor] 10 mg PO HS #0 cap 01/02/16 Rx Folic Acid [Folate*] 1 mg PO DAILY 04/13/16 History Tamsulosin HCl [Flomax] 0.4 mg PO DAILY 04/13/16 History Acetaminophen [Tylenol] 650 mg PO BID #0 tab 04/17/16 Rx Carvedilol [Coreg] 6.25 mg PO BID #0 tab 04/17/16 Rx Docusate Sodium [Colace] 100 mg PO BID #0 cap 04/17/16 Rx Epoetin [place] [Epogen] 5,000 units SUBQ MoWeFr #0 ml 04/17/16 Rx Famotidine [Pepcid] 20 mg PO DAILY #0 tab 04/17/16 Rx Furosemide [Lasix] 40 mg PO DAILY #0 tab 04/17/16 Rx Insulin Aspart Sliding Scale See Protocol SUBQ ACHS #0 unit 04/17/16 Rx [NovoLOG INSULIN SLIDING SCALE] Nortriptyline [Pamelor] 10 mg PO HS #0 cap 04/17/16 Rx Promethazine [Phenergan] 6.25 mg PO Q4H #0 udc 04/17/16 Rx Ramipril [Altace*] 2.5 mg PO DAILY #0 cap 04/17/16 Rx Simvastatin [Zocor] 40 mg PO HS #0 tab 04/17/16 Rx Tamsulosin [Flomax] 0.4 mg PO DAILY #0 cap 04/17/16 Rx Diphenhydramine HCL [Benadryl] 50 mg PO BID PRN cap 11/23/16 Rx Doxycycline Hyclate [Vibramycin*] 100 mg PO BID cap 11/23/16 Rx Insulin Aspart Sliding Scale See Protocol SUBQ Q6HR unit 11/23/16 Rx [NovoLOG INSULIN SLIDING SCALE] Lactulose [Cephulac] 20 gm PO TID udc 11/23/16 Rx Mupirocin Oint [Mupirocin*] 1 appl NS BID appl 11/23/16 Rx Rifaximin [Xifaxan] 500 mg PO BID tab 11/23/16 Rx traMADol HCl [Ultram*] 50 mg PO Q4HR PRN tab 11/23/16 Rx Activity: As Tolerated Consults and Follow-Up: John Celaya [Primary Care Provider] - Consulting Speciality: Cardiac, Renal Instructions: Gallbladder Nuclear Scanning, Hepatic Encephalopathy
== END 2016-11-23 18:46 | disposition home or self-care (01) | DRG 441 ==
LOC: ER 17:53 → TELE 19:41
PROVIDERS: ADMIT General Practice; ATTEND General Practice
PROC: 5A1D60Z (ICD-10-PCS; principal; 2016-11-21)
DX: K72.90 Hepatic failure, unspecified without coma (principal); N18.6 End stage renal disease; I13.2 Hypertensive heart and chronic kidney disease with heart failure and with stage 5 chronic kidney disease, or end stage renal disease; E11.22 Type 2 diabetes mellitus with diabetic chronic kidney disease; D68.9 Coagulation defect, unspecified; R18.8 Other ascites; I50.30 Unspecified diastolic (congestive) heart failure; N39.0 Urinary tract infection, site not specified; E11.69 Type 2 diabetes mellitus with other specified complication; I48.91 Unspecified atrial fibrillation; K74.60 Unspecified cirrhosis of liver; F41.9 Anxiety disorder, unspecified; I25.119 Atherosclerotic heart disease of native coronary artery with unspecified angina pectoris; D50.9 Iron deficiency anemia, unspecified; E78.5 Hyperlipidemia, unspecified; E87.5 Hyperkalemia; D63.1 Anemia in chronic kidney disease; I87.8 Other specified disorders of veins; D69.6 Thrombocytopenia, unspecified; K80.80 Other cholelithiasis without obstruction; Z99.2 Dependence on renal dialysis; Z79.4 Long term (current) use of insulin
CPT/HCPCS: 36415-UA; 71010-TC; 76700-TC; 78226-TC; 80053-TC; 80074-90; 80162-TC; 81001-TC; 82105-90; 82140-TC; 82948-90; 83605; 83690-TC; 83735-TC; 83880-TC; 84100-TC; 84443-TC; 85025-TC; 85610-TC; 87086-90; 90937; 93005; A9537; J1815; J7030; Z7610